=== PATIENT | female | born 1975 | race Caucasian/White ===

== ENCOUNTER → 2017-03-18 | Outpatient (CLI) | payer MEDICAID ==
[2017-03-18 09:15] LABS: ABSOLUTE BASOPHILS # (AUTO) 0.1 10^3/uL (0.0-0.2); ABSOLUTE EOSINOPHILS # (AUTO) 0.2 10^3/uL (0.0-0.6); ABSOLUTE LYMPHOCYTES (AUTO) 2.8 10^3/uL (0.5-4.7); ABSOLUTE MONOCYTES (AUTO) 0.6 10^3/uL (0.1-1.4); ABSOLUTE NEUT (AUTO) 5.2 10^3/uL (1.7-8.2); BASOPHILS % (AUTO) 1.1 % (0-2); EOSINOPHILS % (AUTO) 2.3 % (0-6); HEMATOCRIT 39.6 % (36.0-47.0); HEMOGLOBIN 13.1 g/dL (12.0-15.5); HGB HCT DIFFERENCE -0.3; LYMPHOCYTES % (AUTO) 31.7 % (13-45); MEAN CORPUSCULAR HEMOGLOBIN 27.9 pg (27.0-33.4); MEAN CORPUSCULAR VOLUME 85 fl (80-97); MONOCYTES % (AUTO) 6.8 % (3-13); RED BLOOD COUNT 4.69 10^6/uL (3.72-5.28); RED CELL DISTRIBUTION WIDTH 14.7 % (11.5-14.0); SEGMENTED NEUTROPHILS % (AUTO) 58.1 % (42-78); WHITE BLOOD COUNT 8.9 10^3/uL (4.0-10.5)
[2017-03-18 09:37] LABS: ALANINE AMINOTRANSFERASE 25 U/L (9-52); ALKALINE PHOSPHATASE 132 U/L (38-126); ANION GAP 8 (5-19); ASPARTATE AMINO TRANSFERASE 12 U/L (14-36); BILIRUBIN,DIRECT 0.4 mg/dL (0.0-0.4); BILIRUBIN,TOTAL 0.5 mg/dL (0.2-1.3); BLOOD UREA NITROGEN 8 mg/dL (7-20); CALCIUM 9.7 mg/dL (8.4-10.2); CARBON DIOXIDE 29 mmol/L (22-30); CHLORIDE 104 mmol/L (98-107); CHOLESTEROL 257.23 mg/dL (0-200); CREATININE RESULT 0.86 mg/dL (0.52-1.25); Direct HDL 35 mg/dL (>40); GLUCOSE 105 mg/dL (75-110); POTASSIUM 4.6 mmol/L (3.6-5.0); SODIUM 140.8 mmol/L (137-145); TOTAL PROTEIN 6.9 g/dL (6.3-8.2); TRIGLYCERIDES 184 mg/dL (<150)
[2017-03-18 09:40] LABS: URINE BARBITURATES SCREEN NEGATIVE; URINE METHADONE SCREEN NEGATIVE; URINE OPIATES LOW NEGATIVE; URINE PHENCYCLIDINE SCREEN NEGATIVE
[2017-03-18 09:48] LABS: DIRECT LDL 193 mg/dL (<100)
[2017-03-18 09:52] LABS: VLDL CHOLESTEROL 36.8 mg/dL (10-31)
[2017-03-19 09:05] LABS: THYROXINE (T4) 7.4 ug/dL (4.5-12.0)
== END ==
LOC: LAB 08:50
PROVIDERS: ATTEND Psychiatry & Neurology Psychiatry
DX: Z79.899 Other long term (current) drug therapy (principal)
CPT/HCPCS: 36415; 80053; 80061; 80307; 83036; 84436; 84443; 84480; 85025

== ENCOUNTER → 2017-10-23 | Outpatient (CLI) | payer MEDICAID ==
--- NOTE | 2017-10-23 10:42 | WOMENS IMAGING REPORT ---
EXAM DESCRIPTION: BILAT DIAGNOSTIC MAMMO W/CAD; U/S BREAST UNILATERAL, COMPL COMPLETED DATE/TIME: 10/23/2017 8:07 am; 10/23/2017 10:18 am REASON FOR STUDY: INCONCLUSSIVE MAMMOGRAM;R92.2; BILATERAL R92.2 INCONCLUSIVE MAMMOGRAM COMPARISON: None. TECHNIQUE: Additional images of both breasts with true lateral, magnification lateral, and magnifica tion CC images. LIMITATIONS: None. FINDINGS: RIGHT BREAST MASSES: No suspicious masses. CALCIFICATIONS: Multiple calcifications, almost all of which have configuration of [id number]. ARCHITECTURAL DISTORTION: None. DEVELOPING DENSITY: None. ASYMMETRY: None noted. OTHER: No other significant findings. LEFT BREAST MASSES: No suspicious masses. CALCIFICATIONS: Multiple calcifications, almost all of which have configuration of [id number]. ARCHITECTURAL DISTORTION: None. DEVELOPING DENSITY: None. ASYMMETRY: None noted. OTHER: No other significant findings. BREAST ULTRASOUND: TECHNIQUE: Static and dynamic grayscale images acquired of the entire right and left breast. Selected color Doppler images recorded. ELASTOGRAPHY PERFORMED: No. LIMITATIONS: None. FINDINGS: MASS: Multiple small anechoic cysts scattered throughout both breasts, measuring 1.5 cm or less. No solid mass identified. Normal glandular tissue. ELASTOGRAPHY CHARACTERISTICS: Not applicable. OTHER: No other significant finding. IMPRESSION: 1. Multiple small anechoic cysts in both breasts. No solid lesions identified. 2. Multiple calcifications in both breasts, more numerous in the right breast. Almost all of these h ave configuration of benign milk of calcium. Since there are no prior studies, recommend short-term interval followup to evaluate for stability or any significant change. BREAST DENSITY: c. The breasts are heterogeneously dense, which may obscure small masses. BIRAD: 3 Probably benign finding. Initial short-interval follow-up suggested. RECOMMENDATION: RECOMMENDED FOLLOW UP: Birads 3: The patient will return in 6 months for follow-up i maging to include magnification images of both breasts. SPECIFIC INTERVENTION/IMAGING/CONSULTATION RECOMMENDED:The patient will return for 6 month follow-up diagnostic mammography(tomosynthesis) to include magnification images of both breasts. COMMUNICATION:The imaging findings were not discussed with the patient. She will receive a letter for her accelerated follow-up. COMMENT: The patient has been notified of the results by letter per MQSA requirements. Additional no tification policies are in place for contacting patient with suspicious or incomplete findings. Quality ID #225: The [employer] recommends an annual screening mammogram for women aged 40 years or over. This facility utilizes a reminder system to ensure that all patients receive reminder letters, and/or direct phone calls for appointments. This includes reminders for routine scr eening mammograms, diagnostic mammograms, or other Breast Imaging Interventions when appropriate. Th is patient will be placed in the appropriate reminder system. The [employer] (ACR) has developed recommendations for screening MRI of the breast s in certain patient populations, to be used in conjunction with mammography. Breast MRI surveillanc e may be appropriate for women with more than 20% lifetime risk of developing breast cancer as deter mined by genetic testing, significant family history of the disease, or history of mantle radiation f or Hodgkins Disease. ACR Practice Guidelines 2008. TECHNICAL DOCUMENTATION: FINDING NUMBER: (1) ASSESSMENT: (1) JOB ID: [id number] [employer]- All Rights Reserved
== END ==
LOC: WI 07:40
PROVIDERS: ATTEND Family Medicine
DX: N60.02 Solitary cyst of left breast (principal); N60.01 Solitary cyst of right breast
CPT/HCPCS: 76641; G0204; 77066

== ENCOUNTER 2017-12-16 10:14 | Emergency (ER) | payer MEDICAID ==
--- NOTE | 2017-12-16 12:18 | RADIOLOGY REPORT (SQ) ---
EXAM DESCRIPTION: RIBS RIGHT W/PA CHEST COMPLETED DATE/TIME: 12/16/2017 12:01 pm REASON FOR STUDY: right lower rib pain COMPARISON: None. TECHNIQUE: Frontal view of the chest and additional views of the right ribs acquired. NUMBER OF VIEWS: Four view. LIMITATIONS: None. FINDINGS: FRONTAL CXR: No pneumothorax. No pleural effusion. No atelectasis or infiltrates. RIBS: No displaced rib fractures. No lytic or blastic bony lesions. OTHER: No other significant finding. IMPRESSION: NO PNEUMOTHORAX. NO DISPLACED RIB FRACTURES. COMMENT: SITE OF TRAUMA/COMPLAINT MARKED/STAMP COMPLETED: NO. TECHNICAL DOCUMENTATION: JOB ID: [id number] [employer]- All Rights Reserved
[2017-12-16] MEDS ORDERED: TRAMADOL HCL 50 MG TABLET PO ONE (13:46)
[2017-12-16] MEDS ORDERED: LIDOCAINE 5% (700 MG) TRANSDERMAL ADH..PATCH TP ONE (13:46)
--- NOTE | 2017-12-16 13:50 | ER Document Report ---
ED General - General Chief Complaint: Rib Pain Stated Complaint: PAIN Time Seen by Provider: 12/16/17 11:12 TRAVEL OUTSIDE OF THE [place] IN LAST 30 DAYS: No - HPI Patient complains to provider of: Right chest wall pain Notes: Patient states a family member was walking her back trying to crack it when foot slipped running down the right side of her ribs. Patient states has had increased pain since that time. States occurred last night. Patient was in the right side upon my evaluation no signs of any obvious distress. Denies any medical problems. Denies any fevers chills nausea or diarrhea. - Related Data Allergies/Adverse Reactions: No Known Allergies Allergy (Unverified 12/16/17 10:15) Past Medical History - Social History Smoking Status: Unknown if Ever Smoked Family History: Reviewed & Not Pertinent Review of Systems - Review of Systems Constitutional: No symptoms reported EENT: No symptoms reported Cardiovascular: Chest pain - Right sided Respiratory: No symptoms reported Gastrointestinal: No symptoms reported Genitourinary: No symptoms reported Female Genitourinary: No symptoms reported Musculoskeletal: No symptoms reported Skin: No symptoms reported Hematologic/Lymphatic: No symptoms reported Neurological/Psychological: No symptoms reported -: Yes All other systems reviewed and negative Physical Exam - Vital signs Vitals: Temp Pulse Resp BP Pulse Ox 98.4 F 103 H 18 119/65 96 12/16/17 10:28 12/16/17 10:28 12/16/17 10:28 12/16/17 10:28 12/16/17 10:28 Interpretation: Normal - General General appearance: Appears well, Alert - HEENT Head: Normocephalic, Atraumatic Eyes: Normal Pupils: PERRL - Respiratory Respiratory status: No respiratory distress Chest status: Tender - Tenderness to palpation of the right lower ribs Breath sounds: Normal Chest palpation: Normal - Cardiovascular Rhythm: Regular Heart sounds: Normal auscultation Murmur: No - Abdominal Inspection: Normal Distension: No distension Bowel sounds: Normal Tenderness: Nontender Organomegaly: No organomegaly - Back Back: Normal, Nontender - Extremities General upper extremity: Normal inspection, Nontender, Normal color, Normal ROM , Normal temperature General lower extremity: Normal inspection, Nontender, Normal color, Normal ROM , Normal temperature, Normal weight bearing. No: Hood's sign - Neurological Neuro grossly intact: Yes Cognition: Normal Orientation: AAOx4 Roach Coma Scale Eye Opening: Spontaneous Roach Coma Scale Verbal: Oriented Deep Coma Scale Motor: Obeys Commands Deep Coma Scale Total: 15 Speech: Normal Motor strength normal: LUE, RUE, LLE, RLE Sensory: Normal - Psychological Associated symptoms: Normal affect, Normal mood - Skin Skin Temperature: Warm Skin Moisture: Dry Skin Color: Normal Course - Re-evaluation Re-evalutation: 12/16/17 15:56 X-rays negative for any acute pathology. Patient will be discharged home encouraged patient use ice packs warm packs. More likely underlying rib contusion. Abdomen is soft nontender no signs of any significant pathology in the abdomen. - Vital Signs Vital signs: Temp Pulse Resp BP Pulse Ox 97.4 F 88 12 101/51 L 98 12/16/17 14:00 12/16/17 14:00 12/16/17 14:00 12/16/17 14:00 12/16/17 14:00 Discharge - Discharge Clinical Impression: Right-sided chest wall pain Condition: Good Disposition: HOME, SELF-CARE Instructions: Anti-Inflammatory Medication ([facility]), Chest Wall Pain ([facility]), Rib Contusion ([facility]) Additional Instructions: Your evaluation is consistent with a rib contusion. There is no signs of fracture on the x-ray. Please take pain medication as prescribed. Pain is well return to ER symptoms worsen. Prescriptions: Ibuprofen [Motrin 800 mg Tablet] 800 mg PO Q8H PRN #30 tab PRN Reason: Tramadol HCl [Ultram 50 mg Tablet] 50 mg PO ASDIR PRN #14 tablet PRN Reason: Forms: Return to Work Referrals: MAGALIE HACKETT DO [Primary Care Provider] - Follow up as needed
[2017-12-16 14:02] VITALS: BP 101/51
== END 2017-12-16 14:08 | disposition home or self-care (01) ==
LOC: ER 10:14
DX: R07.89 Other chest pain (principal); R07.81 Pleurodynia; W01.0XXA Fall on same level from slipping, tripping and stumbling without subsequent striking against object, initial encounter
CPT/HCPCS: 99283; 71101; J3490

== ENCOUNTER 2018-01-15 08:13 | Day surgery (SDC) | payer MEDICAID ==
[2018-01-15] MEDS ORDERED: ACETAMINOPHEN 325 MG TABLET ONE (09:19)
[2018-01-15] MEDS ORDERED: MIDAZOLAM 2 MG/2 ML INJ ONE (11:33)
[2018-01-15] MEDS ORDERED: PROPOFOL INJ 200 MG/20 ML VIAL IV ONE (11:33)
[2018-01-15] MEDS ORDERED: DIPHENHYDRAMINE HCL 50 MG/ML VIAL IV PRN (11:46)
[2018-01-15] MEDS ORDERED: MEPERIDINE HCL/PF INJ 25 MG/1 ML DISP.SYRIN IV PRN (11:46)
[2018-01-15] MEDS ORDERED: PROMETHAZINE HCL INJ 25 MG/1 ML VIAL IV PRN ×2 (11:46)
[2018-01-15] MEDS ORDERED: OXYCODONE-ACETAMINOPHEN 5-325 MG TABLET PO PRN ×2 (11:46)
[2018-01-15] MEDS ORDERED: FENTANYL CITRATE INJ/PF 100 MCG/2 ML AMPUL IV PRN ×3 (11:46)
--- NOTE | 2018-01-15 12:03 | Operative Report ---
Operative Report DATE OF SURGERY: 01/15/18 Operative Report: The risks benefits and alternatives of the procedure explained to the patient in detail and informed consent is obtained.A GIF Olympus video scope was inserted into the patient's mouth and hypopharynx, the esophagus is identified intubated and insufflated, the scope was then advanced through the esophagus stomach and duodenum, retroflexion maneuver is done, the esophagus stomach and first and second portions of the duodenum examined PREOPERATIVE DIAGNOSIS: Nausea, dyspepsia POSTOPERATIVE DIAGNOSIS: Duodenitis status post biopsy rule out Helicobacter pylori. Gastritis status post biopsy OPERATION: EGD with biopsy SURGEON: EMILIO SERVIN ANESTHESIA: LMAC TISSUE REMOVED OR ALTERED: As noted above COMPLICATIONS: None. ESTIMATED BLOOD LOSS: None. INTRAOPERATIVE FINDINGS: As noted above. PROCEDURE: Patient tolerated procedure well. No immediate postprocedure complications are noted. Patient discharged in good condition. Discharge date 01/15/2018. Discharge diet: Regular. Discharge activity: Regular. 2-3 week follow-up to discuss findings. Patient is instructed call the office or proceed to the emergency room should there be any further problems or questions. We will and pathology.
[2018-01-15 13:37] VITALS: BP 106/53
== END 2018-01-15 13:30 | disposition home or self-care (01) ==
LOC: OROUT 08:13
PROVIDERS: ATTEND Internal Medicine Gastroenterology
DX: K29.80 Duodenitis without bleeding (principal); K29.70 Gastritis, unspecified, without bleeding; F17.210 Nicotine dependence, cigarettes, uncomplicated; K21.9 Gastro-esophageal reflux disease without esophagitis; G47.33 Obstructive sleep apnea (adult) (pediatric); Z79.899 Other long term (current) drug therapy
CPT/HCPCS: 43239; 36415; 84703; J3490; J2250; J2704; 731

== ENCOUNTER → 2018-02-18 | Outpatient (CLI) | payer MEDICAID ==
--- NOTE | 2018-02-18 13:25 | RADIOLOGY REPORT (SQ) ---
EXAM DESCRIPTION: U/S ABDOMEN COMPLETE W/O DOP COMPLETED DATE/TIME: 02/18/2018 10:28 am REASON FOR STUDY: BILIOS VOMITING WITH NAUSEA R11.14 BILIOUS VOMITING COMPARISON: None. TECHNIQUE: Dynamic and static grayscale images acquired of the abdomen and recorded on PACS. Loyo wei selected color Doppler and spectral images recorded. LIMITATIONS: None. FINDINGS: PANCREAS: No masses. Visualized pancreatic duct normal caliber. LIVER: No masses. Echotexture normal. LIVER VASCULATURE: Normal directional flow of the main portal vein and hepatic veins. GALLBLADDER: No stones. Normal wall thickness. No pericholecystic fluid. ULTRASOUND-DETECTED ROB'S SIGN: Negative. INTRAHEPATIC DUCTS AND COMMON DUCT: CBD and intrahepatic ducts normal caliber. No filling defects. INFERIOR VENA CAVA: Normal flow. AORTA: No aneurysm. RIGHT KIDNEY: Normal size. Normal echogenicity. No solid or suspicious masses. No hydronephros is. No calcifications. LEFT KIDNEY: Normal size. Normal echogenicity. No solid or suspicious masses. No hydronephrosi s. No calcifications. SPLEEN: Normal size. No solid masses. PERITONEAL AND PLEURAL SPACES: No ascites or effusions. OTHER: No other significant finding. IMPRESSION: NORMAL ABDOMINAL ULTRASOUND. TECHNICAL DOCUMENTATION: JOB ID: [id number] [employer]- All Rights Reserved Reading location - IP/workstation name: [email or web address]
== END ==
LOC: RAD 09:15
PROVIDERS: ATTEND Internal Medicine Gastroenterology
DX: R11.14 Bilious vomiting (principal)
CPT/HCPCS: 76700

== ENCOUNTER → 2018-02-28 | Outpatient (CLI) | payer MEDICAID ==
--- NOTE | 2018-02-28 10:00 | RADIOLOGY REPORT (SQ) ---
EXAM DESCRIPTION: NM HIDA SCAN WITH CCK COMPLETED DATE/TIME: 02/28/2018 9:41 am REASON FOR STUDY: BILIOUS VOMITING (R11.14) R11.14 BILIOUS VOMITING COMPARISON: None. RADIONUCLIDE AND DOSE: DOSAGE RADIONUCLIDE: 4.9 millicuries Tc99m Mebrofenin. DOSAGE CCK: 1.3 micrograms. DOSAGE MORPHINE: Not required. The route of agent administration: Intravenous TECHNIQUE: Serial imaging right upper quadrant up to 60 minutes following injection of radionuclide. CCK injected after gallbladder visualized. LIMITATIONS: None. FINDINGS: LIVER: Normal visualization without areas of photopenia. INTRA AND EXTRAHEPATIC BILE DUCTS: Normal accumulation of activity. GALLBLADDER: Normal visualization. Calculated Ejection Fraction of 5%. Below the normal value of 35% or greater. PHYSICAL RESPONSE: Patients presenting complaint was not reproduced. OTHER: No other significant finding. IMPRESSION: Diminished gallbladder ejection fraction suggests dyskinesia. Of note, CCK did not repl icate the patient's presenting symptoms. TECHNICAL DOCUMENTATION: JOB ID: [id number] [employer]- All Rights Reserved Reading location - IP/workstation name: [email or web address]
== END ==
LOC: RAD 06:46
PROVIDERS: ATTEND Internal Medicine Gastroenterology
DX: R11.14 Bilious vomiting (principal)
CPT/HCPCS: 78227; J2805; A9537; Q9969

== ENCOUNTER → 2018-04-11 | Outpatient (CLI) | payer MEDICAID ==
[2018-04-11 12:54] LABS: ABSOLUTE BASOPHILS # (AUTO) 0.1 10^3/uL (0.0-0.2); ABSOLUTE EOSINOPHILS # (AUTO) 0.2 10^3/uL (0.0-0.6); ABSOLUTE LYMPHOCYTES (AUTO) 2.8 10^3/uL (0.5-4.7); ABSOLUTE MONOCYTES (AUTO) 0.6 10^3/uL (0.1-1.4); ABSOLUTE NEUT (AUTO) 8.1 10^3/uL (1.7-8.2); BASOPHILS % (AUTO) 0.9 % (0-2); EOSINOPHILS % (AUTO) 1.7 % (0-6); HEMATOCRIT 36.3 % (36.0-47.0); HEMOGLOBIN 12.5 g/dL (12.0-15.5); LYMPHOCYTES % (AUTO) 23.6 % (13-45); MEAN CORPUSCULAR HEMOGLOBIN 29.3 pg (27.0-33.4); MEAN CORPUSCULAR HGB CONC 34.5 g/dL (32.0-36.0); MEAN CORPUSCULAR VOLUME 85 fl (80-97); MONOCYTES % (AUTO) 5.2 % (3-13); PLATELET COUNT 364 10^3/uL (150-450); RED BLOOD COUNT 4.28 10^6/uL (3.72-5.28); RED CELL DISTRIBUTION WIDTH 15.4 % (11.5-14.0); SEGMENTED NEUTROPHILS % (AUTO) 68.6 % (42-78); TOTAL CELLS COUNTED % (AUTO) 100 %; WHITE BLOOD COUNT 11.8 10^3/uL (4.0-10.5)
[2018-04-11 13:13] LABS: ANION GAP 12 (5-19); BLOOD UREA NITROGEN 19 mg/dL (7-20); CALCIUM 10.2 mg/dL (8.4-10.2); CARBON DIOXIDE 27 mmol/L (22-30); CHLORIDE 104 mmol/L (98-107); GLUCOSE 96 mg/dL (75-110); POTASSIUM 4.4 mmol/L (3.6-5.0); SODIUM 142.8 mmol/L (137-145)
--- NOTE | 2018-04-11 13:43 | EKG REPORT ---
SEVERITY:- OTHERWISE NORMAL ECG - SINUS RHYTHM BORDERLINE LEFT AXIS DEVIATION : Confirmed by: Mauro Zhou MD 11-Apr-2018 13:43:09
== END ==
LOC: OD 11:32
PROVIDERS: ATTEND Surgery
DX: G47.30 Sleep apnea, unspecified (principal); Z72.0 Tobacco use
CPT/HCPCS: 36415; 80048; 85025; 93005; 93010

== ENCOUNTER → 2018-04-14 | Outpatient (CLI) | payer MEDICAID ==
[2018-04-14 14:43] LABS: ABSOLUTE BASOPHILS # (AUTO) 0.1 10^3/uL (0.0-0.2); ABSOLUTE EOSINOPHILS # (AUTO) 0.2 10^3/uL (0.0-0.6); ABSOLUTE LYMPHOCYTES (AUTO) 3.4 10^3/uL (0.5-4.7); ABSOLUTE MONOCYTES (AUTO) 0.8 10^3/uL (0.1-1.4); ABSOLUTE NEUT (AUTO) 8.5 10^3/uL (1.7-8.2); BASOPHILS % (AUTO) 0.6 % (0-2); EOSINOPHILS % (AUTO) 1.9 % (0-6); HEMOGLOBIN 12.9 g/dL (12.0-15.5); LYMPHOCYTES % (AUTO) 26.5 % (13-45); MEAN CORPUSCULAR HEMOGLOBIN 28.9 pg (27.0-33.4); MEAN CORPUSCULAR VOLUME 85 fl (80-97); MONOCYTES % (AUTO) 5.8 % (3-13); PLATELET COUNT 398 10^3/uL (150-450); RED BLOOD COUNT 4.47 10^6/uL (3.72-5.28); RED CELL DISTRIBUTION WIDTH 15.2 % (11.5-14.0); SEGMENTED NEUTROPHILS % (AUTO) 65.2 % (42-78); TOTAL CELLS COUNTED % (AUTO) 100 %
--- NOTE | 2018-04-14 15:50 | RADIOLOGY REPORT (SQ) ---
EXAM DESCRIPTION: CHEST SINGLE VIEW COMPLETED DATE/TIME: 04/14/2018 2:18 pm REASON FOR STUDY: TOBACCO USE; SLEEP APNEA COMPARISON: None. EXAM PARAMETERS: NUMBER OF VIEWS: One view. TECHNIQUE: Single frontal radiographic view of the chest acquired. RADIATION DOSE: NA LIMITATIONS: None. FINDINGS: LUNGS AND PLEURA: No opacities, masses or pneumothorax. No pleural effusion. MEDIASTINUM AND HILAR STRUCTURES: No masses. Contour normal. HEART AND VASCULAR STRUCTURES: Heart normal in size. Normal vasculature. BONES: No acute findings. HARDWARE: None in the chest. OTHER: No other significant finding. IMPRESSION: NO ACUTE RADIOGRAPHIC FINDING IN THE CHEST. TECHNICAL DOCUMENTATION: JOB ID: [id number] [employer]- All Rights Reserved Reading location - IP/workstation name: [email or web address]
== END ==
LOC: OD 13:50
PROVIDERS: ATTEND Surgery
DX: G47.30 Sleep apnea, unspecified (principal); Z72.0 Tobacco use
CPT/HCPCS: 36415; 71045; 85025

== ENCOUNTER → 2018-05-01 | Outpatient (CLI) | payer MEDICAID ==
--- NOTE | 2018-05-01 10:34 | WOMENS IMAGING REPORT ---
EXAM DESCRIPTION: BILAT DIAGNOSTIC MAMMO W/CAD COMPLETED DATE/TIME: 05/01/2018 10:17 am REASON FOR STUDY: DIAGNOSTIC BILATERAL MAMMO/R92.0 R92.0 MAMMOGRAPHIC MICROCALCIFICATION FOUND ON D X IMAGING OF COMPARISON: 08/30/2017, 10/23/2017 TECHNIQUE: Standard craniocaudal, 90 mediolateral and mediolateral oblique views of each breast rec orded using digital acquisition. Bilateral cone compression magnification views in the CC and MLO orientations. LIMITATIONS: None. FINDINGS: RIGHT BREAST MASSES: No suspicious masses. CALCIFICATIONS: Multiple milk of calcium calcifications are present ARCHITECTURAL DISTORTION: None. DEVELOPING DENSITY: None. ASYMMETRY: None noted. OTHER: No other significant findings. LEFT BREAST MASSES: No suspicious masses. CALCIFICATIONS: Multiple milk of calcium calcifications are present ARCHITECTURAL DISTORTION: None. DEVELOPING DENSITY: None. ASYMMETRY: None noted. OTHER: No other significant finding. Read with the assistance of CAD: .[facility] - R2 Cenova Version 1.3 .[facility] - R2 Cenova Version 1.3 .[facility] - R2 Cenova Version 2.4 .[facility] [place] - R2 Cenova Version 2.4 .[facility] - R2 Tape Recorder Repairer Version 9.2 IMPRESSION: No mammographic evidence for malignancy. BREAST DENSITY: d. The breasts are extremely dense, which lowers the sensitivity of mammography. BIRAD: 2 Benign findings. RECOMMENDATION: RECOMMENDED FOLLOW UP: Please continue yearly bilateral screening tomosynthesis in J adriana 2019 SPECIFIC INTERVENTION/IMAGING/CONSULTATION RECOMMENDED:No additional intervention/ imaging/consultati on needed at this time. COMMUNICATION:The negative/benign results were communicated to the patient. COMMENT: The patient has been notified of the results by letter per [place] requirements. Additional no tification policies are in place for contacting patient with suspicious or incomplete findings. Quality ID #225: The [employer] recommends an annual screening mammogram for women aged 40 years or over. This facility utilizes a reminder system to ensure that all patients receive reminder letters, and/or direct phone calls for appointments. This includes reminders for routine scr eening mammograms, diagnostic mammograms, or other Breast Imaging Interventions when appropriate. Th is patient will be placed in the appropriate reminder system. The [employer] (ACR) has developed recommendations for screening MRI of the breast s in certain patient populations, to be used in conjunction with mammography. Breast MRI surveillanc e may be appropriate for women with more than 20% lifetime risk of developing breast cancer as deter mined by genetic testing, significant family history of the disease, or history of mantle radiation f or Hodgkins Disease. ACR Practice Guidelines 2008. TECHNICAL DOCUMENTATION: FINDING NUMBER: (1) ASSESSMENT: (1) JOB ID: [id number] [employer]- All Rights Reserved Reading location - IP/workstation name: [email or web address]
== END ==
LOC: WI 09:46
PROVIDERS: ATTEND Family Medicine
DX: R92.0 Mammographic microcalcification found on diagnostic imaging of breast (principal)
CPT/HCPCS: 77066

== ENCOUNTER 2018-05-02 11:08 | Inpatient (IN) | payer MEDICAID ==
[2018-05-02] MEDS ORDERED: NORMAL SALINE 1000 ML 1,000 ML IV ONE (11:28)
--- NOTE | 2018-05-02 11:30 | ER Document Report ---
ED Medical Screen (RME) - General Chief Complaint: Syncope Stated Complaint: WEAKNESS Time Seen by Provider: 05/02/18 11:22 Notes: RAPID MEDICAL EVALUATION DISCLOSURE I have seen this patient as part of a Rapid Medical Evaluation and, if applicable, placed any initially appropriate orders. The patient will be seen and fully evaluated, including a full history and physical exam, by a provider ( in Main ED or Fast Track) when a room becomes available. 42-year-old female PMH left hip replacement here with complaint of syncope that occurred yesterday. She went from a sitting to a standing position then immediately passed out. She fell onto her left side and complains of pain to the left chest wall and left hip. She feels like she has been drinking plenty of fluids. She denies any other symptoms. EXAM CTAB Mild left lateral chest wall TTP Mild left hip TTP TRAVEL OUTSIDE OF THE [place] IN LAST 30 DAYS: No - Related Data Allergies/Adverse Reactions: No Known Allergies Allergy (Verified 05/02/18 11:09) Past Medical History - Social History Chew tobacco use (# tins/day): No Frequency of alcohol use: None Drug Abuse: None - Past Medical History Cardiac Medical History: Denies: Hx Coronary Artery Disease, Hx Heart Attack, Hx Hypertension Pulmonary Medical History: Denies: Hx Asthma, Hx Bronchitis, Hx COPD, Hx Pneumonia Neurological Medical History: Denies: Hx Cerebrovascular Accident, Hx Seizures Renal/ Medical History: Denies: Hx Peritoneal Dialysis Musculoskeltal Medical History: Denies Hx Arthritis - Immunizations Hx Diphtheria, Pertussis, Tetanus Vaccination: Yes History of Influenza Vaccine for 07/2017 - 12/2017 Season: Yes Influenza Administration Date for 07/2017 - 12/2017 Season: 08/15/17 Physical Exam - Vital signs Vitals: Temp Pulse Resp BP Pulse Ox 97.5 F 92 16 95/63 L 100 05/02/18 11:21 05/02/18 11:21 05/02/18 11:21 05/02/18 11:21 05/02/18 11:21 Course - Vital Signs Vital signs: Temp Pulse Resp BP Pulse Ox 97.5 F 92 16 95/63 L 100 05/02/18 11:21 05/02/18 11:21 05/02/18 11:21 05/02/18 11:21 05/02/18 11:21 Doctor's Discharge - Discharge Referrals: MAGALIE HACKETT DO [Primary Care Provider] - Follow up as needed
[2018-05-02 12:20] LABS: ABSOLUTE BASOPHILS # (AUTO) 0.1 10^3/uL (0.0-0.2); ABSOLUTE EOSINOPHILS # (AUTO) 0.3 10^3/uL (0.0-0.6); ABSOLUTE LYMPHOCYTES (AUTO) 3.4 10^3/uL (0.5-4.7); ABSOLUTE MONOCYTES (AUTO) 0.8 10^3/uL (0.1-1.4); ABSOLUTE NEUT (AUTO) 8.3 10^3/uL (1.7-8.2); BASOPHILS % (AUTO) 0.4 % (0-2); EOSINOPHILS % (AUTO) 2.3 % (0-6); HEMATOCRIT 39.5 % (36.0-47.0); HEMOGLOBIN 13.9 g/dL (12.0-15.5); LYMPHOCYTES % (AUTO) 26.3 % (13-45); MEAN CORPUSCULAR HEMOGLOBIN 29.2 pg (27.0-33.4); MEAN CORPUSCULAR HGB CONC 35.1 g/dL (32.0-36.0); MEAN CORPUSCULAR VOLUME 83 fl (80-97); MONOCYTES % (AUTO) 5.9 % (3-13); PLATELET COUNT 487 10^3/uL (150-450); RED BLOOD COUNT 4.74 10^6/uL (3.72-5.28); RED CELL DISTRIBUTION WIDTH 14.6 % (11.5-14.0); SEGMENTED NEUTROPHILS % (AUTO) 65.1 % (42-78); TOTAL CELLS COUNTED % (AUTO) 100 %; WHITE BLOOD COUNT 12.7 10^3/uL (4.0-10.5)
[2018-05-02 12:38] LABS: ALANINE AMINOTRANSFERASE 23 U/L (9-52); ALBUMIN 4.8 g/dL (3.5-5.0); ALKALINE PHOSPHATASE 138 U/L (38-126); ANION GAP 17 (5-19); ASPARTATE AMINO TRANSFERASE 22 U/L (14-36); BILIRUBIN,DIRECT 0.4 mg/dL (0.0-0.4); BILIRUBIN,TOTAL 0.6 mg/dL (0.2-1.3); BLOOD UREA NITROGEN 27 mg/dL (7-20); CALCIUM 10.2 mg/dL (8.4-10.2); CARBON DIOXIDE 33 mmol/L (22-30); CHLORIDE 91 mmol/L (98-107); GLUCOSE 103 mg/dL (75-110); PHOSPHORUS 5.3 mg/dL (2.5-4.5); SODIUM 140.6 mmol/L (137-145); TOTAL PROTEIN 8.1 g/dL (6.3-8.2)
[2018-05-02 12:43] LABS: POTASSIUM 2.8 mmol/L (3.6-5.0)
[2018-05-02] MEDS ORDERED: POTASSIUM CHLORIDE 10 MEQ CAPSULE.ER PO ONE ×2 (12:45→17:00)
[2018-05-02] MEDS ORDERED: NORMAL SALINE 1000 ML 1,000 ML IV PRN ×2 (13:04→15:44)
[2018-05-02] MEDS ORDERED: ONDANSETRON 4 MG TAB.RAPDIS PO ONE (13:04)
--- NOTE | 2018-05-02 13:07 | ER Document Report ---
ED General - General Chief Complaint: Syncope Stated Complaint: WEAKNESS Time Seen by Provider: 05/02/18 11:22 Mode of Arrival: Ambulatory Information source: Patient Notes: 42-year-old female with history of depression, anxiety, obstructive sleep apnea presents from home complaint of left hip pain. Patient states that she had a syncopal episode last night. She states that she walked into the bathroom had a change of vision and then fell to the floor. Mother who is at the bedside states that when she found the patient she was awake and crying. Patient reports that she had a cholecystectomy approximately 3 weeks ago. She states since that time she has not been eating and drinking normally. She does not drink water but only Sprite. She states that every time she does attempt to eat she vomits. She also complains of difficulty with urination. Patient states because of this difficulty to urinate she decided to take her mother's Lasix twice a day for the last 3 weeks. TRAVEL OUTSIDE OF THE [place] IN LAST 30 DAYS: No - HPI Onset: Yesterday Onset/Duration: Sudden Quality of pain: Achy, Throbbing Severity: Moderate Pain Level: 2 Associated symptoms: Body/muscle aches, Nausea, Vomiting. denies: Chest pain, Shortness of breath, Weakness Exacerbated by: Movement Relieved by: Remaining still Similar symptoms previously: No Recently seen / treated by doctor: Yes - Related Data Allergies/Adverse Reactions: No Known Allergies Allergy (Verified 05/02/18 11:09) Past Medical History - General Information source: Patient, [facility] Records - Social History Smoking Status: Current Every Day Smoker Cigarette use (# per day): Yes - 5-10 Chew tobacco use (# tins/day): No Smoking Education Provided: Yes - Patient counselled regarding cessation for 4 minutes Frequency of alcohol use: None Drug Abuse: None Lives with: Parents Family History: Reviewed & Not Pertinent Patient has suicidal ideation: No Patient has homicidal ideation: No - Past Medical History Cardiac Medical History: Denies: Hx Coronary Artery Disease, Hx Heart Attack, Hx Hypertension Pulmonary Medical History: Denies: Hx Asthma, Hx Bronchitis, Hx COPD, Hx Pneumonia Neurological Medical History: Denies: Hx Cerebrovascular Accident, Hx Seizures Renal/ Medical History: Denies: Hx Peritoneal Dialysis Musculoskeltal Medical History: Denies Hx Arthritis - Immunizations Hx Diphtheria, Pertussis, Tetanus Vaccination: Yes Review of Systems - Review of Systems Constitutional: denies: Chills, Fever, Recent illness EENT: denies: Difficulty swallowing Cardiovascular: Syncope. denies: Chest pain, Palpitations, Dizziness, Lightheaded Respiratory: denies: Short of breath Gastrointestinal: Nausea, Vomiting. denies: Abdominal pain Genitourinary: Retention Female Genitourinary: No symptoms reported Musculoskeletal: Back pain, Joint pain Skin: denies: Rash Hematologic/Lymphatic: No symptoms reported Neurological/Psychological: Depression, Anxiety, Lost consciousness. denies: Headaches, Speech impairment, Numbness, Suicidal ideation Physical Exam - Vital signs Vitals: Temp Pulse Resp BP Pulse Ox 97.5 F 92 16 95/63 L 100 05/02/18 11:21 05/02/18 11:21 05/02/18 11:21 05/02/18 11:21 05/02/18 11:21 - Notes Notes: PHYSICAL EXAMINATION: GENERAL: Well-appearing, well-nourished and in no acute distress. HEAD: Atraumatic, normocephalic. EYES: Pupils equal round and reactive to light, extraocular movements intact, conjunctiva are normal. ENT: Nares patent, oropharynx clear without exudates. dry mucous membranes. NECK: Normal range of motion, supple without lymphadenopathy LUNGS: Breath sounds clear to auscultation bilaterally and equal. No wheezes rales or rhonchi. HEART: Regular rate and rhythm without murmurs ABDOMEN: Soft, nontender, nondistended abdomen. No guarding, no rebound. No masses appreciated. Female : deferred Musculoskeletal: Left hip tender to palpation. No obvious deformity. DP pulse intact. NEUROLOGICAL: Cranial nerves grossly intact. Normal speech, normal gait. Normal sensory, motor exams PSYCH: Normal mood, normal affect. SKIN: Warm, Dry, normal turgor, no rashes or lesions noted. Course - Re-evaluation Re-evalutation: Hip X-Ray 05/02/18 11:27 IMPRESSION: No acute fracture or malalignment. There is lucency along the distal tip of the left hip prosthesis, which could indicate loosening Ribs w/Chest X-Ray 05/02/18 11:27 IMPRESSION: NO PNEUMOTHORAX. NO DISPLACED RIB FRACTURES. Hip X-Ray 05/02/18 11:27 IMPRESSION: No acute fracture or malalignment. There is lucency along the distal tip of the left hip prosthesis, which could indicate loosening Ribs w/Chest X-Ray 05/02/18 11:27 IMPRESSION: NO PNEUMOTHORAX. NO DISPLACED RIB FRACTURES. 05/02/18 15:38 42-year-old female with history of depression, anxiety, obstructive sleep apnea presents from home complaint of left hip pain. Patient states that she had a syncopal episode last night. She states that she walked into the bathroom had a change of vision and then fell to the floor. Mother who is at the bedside states that when she found the patient she was awake and crying. Patient reports that she had a cholecystectomy approximately 3 weeks ago. She states since that time she has not been eating and drinking normally. She does not drink water but only Sprite. She states that every time she does attempt to eat she vomits. She also complains of difficulty with urination. Patient states because of this difficulty to urinate she decided to take her mother's Lasix twice a day for the last 3 weeks. Upon arrival vitals reviewed patient is mildly hypotensive but not tachycardic or febrile. She does appear markedly dehydrated. Orthostatic vital signs were obtained and negative. Patient found to have a potassium of 2.8 and an ELIESER. Patient was provided IV fluids, potassium was replenished. Patient will be admitted to the hospitalist. 05/02/18 15:38 - Vital Signs Vital signs: Temp Pulse Resp BP Pulse Ox 97.5 F 92 14 106/65 100 05/02/18 11:21 05/02/18 11:21 05/02/18 15:00 05/02/18 15:00 05/02/18 15:00 - Laboratory Result Diagrams: 05/02/18 11:50 05/02/18 11:50 Laboratory results interpreted by me: 05/02/18 05/02/18 05/02/18 11:50 11:50 14:28 WBC 12.7 H RDW 14.6 H Plt Count 487 H Absolute Neutrophils 8.3 H Potassium 2.8 L* Chloride 91 L Carbon Dioxide 33 H BUN 27 H Creatinine 2.69 H Est GFR ( Amer) 24 L Est GFR (Non-Af Amer) 20 L Phosphorus 5.3 H Magnesium 2.5 H Alkaline Phosphatase 138 H Urine Blood SMALL H - Diagnostic Test Radiology reviewed: Image reviewed, Reports reviewed Discharge - Discharge Clinical Impression: Hypokalemia, Acute kidney injury, Dehydration Syncope Qualifiers: Syncope type: unspecified Qualified Code(s): R55 - Syncope and collapse Condition: Good Disposition: ADMITTED INPATIENT Admitting Provider: Hospitalist Unit Admitted: Medical Floor
[2018-05-02] MEDS ORDERED: RINGERS SOLUTION,LACTATED 1,000 ML IV ONE ×2 (13:09→13:14)
--- NOTE | 2018-05-02 13:25 | RADIOLOGY REPORT (SQ) ---
EXAM DESCRIPTION: HIP LEFT AP/LATERAL COMPLETED DATE/TIME: 05/02/2018 12:16 pm REASON FOR STUDY: s/p fall COMPARISON: None. NUMBER OF VIEWS: Two views. TECHNIQUE: AP pelvis and additional frog-leg view of the left hip. LIMITATIONS: None. FINDINGS: MINERALIZATION: Normal. LEFT HIP: Left hip replacement with acetabular component anchored with a single screw. Non cemented femoral component. There is lucency around the distal tip of the femoral prosthesis, question loosen ing. RIGHT HIP: No acute fracture or malalignment. No significant right hip joint space narrowing. PUBIS AND ISCHIUM: No fracture. PELVIS: No fracture. SACRUM: No fracture or dislocation. No worrisome bone lesions. LOWER LUMBAR SPINE: No fracture or dislocation. No worrisome bone lesions. No significant disc disea se. SOFT TISSUES: IUD in the uterus OTHER: No other significant finding. IMPRESSION: No acute fracture or malalignment. There is lucency along the distal tip of the left hip prosthesis, which could indicate loosening TECHNICAL DOCUMENTATION: JOB ID: [id number] [email or web address]- All Rights Reserved Reading location - IP/workstation name: [facility]
--- NOTE | 2018-05-02 13:27 | RADIOLOGY REPORT (SQ) ---
EXAM DESCRIPTION: RIBS LEFT W/PA CHEST COMPLETED DATE/TIME: 05/02/2018 12:16 pm REASON FOR STUDY: s/p fall COMPARISON: Chest and right rib detail films 12/16/2017 TECHNIQUE: Frontal view of the chest and additional views of the left ribs acquired. NUMBER OF VIEWS: PA chest, left rib detail two views LIMITATIONS: None. FINDINGS: FRONTAL CXR: No pneumothorax. No pleural effusion. No atelectasis or infiltrates. Cardi ac silhouette size, fanta unremarkable. RIBS: No displaced rib fractures. No lytic or blastic bony lesions. OTHER: Clips right upper quadrant post cholecystectomy. IMPRESSION: NO PNEUMOTHORAX. NO DISPLACED RIB FRACTURES. COMMENT: SITE OF TRAUMA/COMPLAINT MARKED/STAMP COMPLETED: Yes TECHNICAL DOCUMENTATION: JOB ID: [id number] [email or web address]- All Rights Reserved Reading location - IP/workstation name: [facility]
--- NOTE | 2018-05-02 13:28 | EKG REPORT ---
SEVERITY:- ABNORMAL ECG - SINUS RHYTHM BORDERLINE LEFT AXIS DEVIATION NONSPECIFIC T ABNORMALITIES, DIFFUSE LEADS : Confirmed by: Mauro Zhou MD 02-May-2018 13:27:45
[2018-05-02] MEDS: POTASSI CL 20 MEQ/50 ML RIDER 20 MEQ/50 ML RTUPB IV SCH ×2 (14:09→17:18)
[2018-05-02 15:02] LABS: APPEARANCE,URINE CLEAR; BILIRUBIN,URINE NEGATIVE (NEGATIVE); COLOR,URINE YELLOW; GLUCOSE, URINE NEGATIVE (NEGATIVE); KETONES,URINE NEGATIVE (NEGATIVE); LEUKOCYTE ESTERASE,URINE NEGATIVE (NEGATIVE); NITRITE,URINE NEGATIVE (NEGATIVE); PROTEIN,URINE NEGATIVE (NEGATIVE); UROBILINOGEN,URINE NEGATIVE mg/dL (<2.0)
[2018-05-02] MEDS ORDERED: ONDANSETRON HCL INJ/PF 4 MG/2 ML SDV IV PRN (15:44)
[2018-05-02] MEDS ORDERED: OXYCODONE-ACETAMINOPHEN 5-325 MG TABLET PO PRN (15:44)
[2018-05-02] MEDS ORDERED: ACETAMINOPHEN 325 MG TABLET PO PRN (15:44)
--- NOTE | 2018-05-02 16:17 | PDOC H&P ---
History of Present Illness Admission Date/PCP: 05/02/18 14:57 MAGALIE HACKETT DO Patient complains of: Fall yesterday History of Present Illness: LES MITTAL is a 42 year old female with past medical history of bipolar disorder and other psych disorders that she is unsure of, presented to the ED complaining of a fall that happened yesterday. Patient states that yesterday she was standing when she felt like she blacked out and hit the wall and then landed on the floor. States that she hit her left hip and her left side of her head. Her mother was in the next room and came in to see her and found her on the floor setting. She cannot remember whether she passed out or not. She is not sure if he actually blacked out or not. Patient states that her mother helped him to the fact that she was still weak. Mother states that she apparently that she went to sleep at night. This morning her mother was worried about her due to the falling episode and hence brought her to the ED. Patient states that currently her left hip hurts but otherwise she feels fine. Patient states that she has been drinking water at all. She states "I hate water". States that she does not drink water at all. She does take a lot of psych medicine and she has not missed any overdoses. Patient denies any chest pain, shortness of breath, abdominal pain, nausea/vomiting, dizziness, lightness , blurry vision or numbness/tingling. Past Medical History Cardiac Medical History: Denies: Coronary Artery Disease, Myocardial Infarction, Hypertension Pulmonary Medical History: Denies: Asthma, Bronchitis, Chronic Obstructive Pulmonary Disease (COPD), Pneumonia Neurological Medical History: Denies: Seizures Musculoskeltal Medical History: Denies: Arthritis Hematology: Denies: Anemia Past Surgical History Past Surgical History: Reports: Cholecystectomy - Last month. As per patient Social History Lives with: Parents Smoking Status: Current Every Day Smoker Family History Family History: Reviewed & Not Pertinent Parental Family History Reviewed: Yes Children Family History Reviewed: Unknown Sibling(s) Family History Reviewed.: Unknown Medication/Allergy Home Medications: Aripiprazole 30 mg PO DAILY 01/09/18 Benztropine Mesylate 2 mg PO BID 01/09/18 Hydrocodone Bit/Acetaminophen [Hydrocodon-Acetaminophen 5-325] 1 tab PO Q4HP PRN 01/09/18 Hydroxyzine HCl 25 mg PO TID 01/09/18 Prazosin HCl 2 mg PO DAILY 01/09/18 Quetiapine Fumarate [Seroquel] 1 tab PO QHS 01/09/18 Topiramate [Topamax] 1 tab PO DAILY 01/09/18 Bupropion HCl [Wellbutrin Xl 300mg 24hr Tablet] 1 tab PO DAILY 05/02/18 Gabapentin [Neurontin 300 mg Capsule] 300 mg PO Q8 05/02/18 Ibuprofen [Motrin 800 mg Tablet] 800 mg PO BID 05/02/18 Rizatriptan Benzoate [Rizatriptan] 10 mg PO ASDIR PRN 05/02/18 Vortioxetine Hydrobromide [Brintellix] 20 mg PO DAILY 05/02/18 Allergies/Adverse Reactions: No Known Allergies Allergy (Verified 05/02/18 11:09) Review of Systems Constitutional: PRESENT: as per HPI. ABSENT: chills, fever(s), headache(s) Eyes: ABSENT: visual disturbances Nose, Mouth, and Throat: ABSENT: headache(s), mouth pain, sore throat Cardiovascular: ABSENT: chest pain, dyspnea on exertion Respiratory: ABSENT: cough, dyspnea Gastrointestinal: ABSENT: abdominal pain, bloating, coffee ground emesis, diarrhea, heartburn Musculoskeletal: PRESENT: as per HPI, other - Left hip pain Integumentary: ABSENT: diaphoresis Neurological: ABSENT: abnormal gait, abnormal movements, confusion, dizziness, focal weakness, frequent falls, lack of coordination, numbness, tingling, weakness Psychiatric: PRESENT: as per HPI, other - Bipolar disorder and other psych disorders Hematologic/Lymphatic: ABSENT: easy bruising Physical Exam Vital Signs: Temp Pulse Resp BP Pulse Ox 97.5 F 92 14 106/65 100 05/02/18 11:21 05/02/18 11:21 05/02/18 15:00 05/02/18 15:00 05/02/18 15:00 General appearance: PRESENT: no acute distress, well-developed, well-nourished Head exam: PRESENT: atraumatic, normocephalic Eye exam: PRESENT: conjunctival injection, EOMI. ABSENT: scleral icterus Mouth exam: PRESENT: dry mucosa, neck supple, tongue midline Throat exam: ABSENT: tonsillar exudate Neck exam: PRESENT: full ROM. ABSENT: JVD, tenderness Respiratory exam: PRESENT: clear to auscultation ana, symmetrical. ABSENT: accessory muscle use Cardiovascular exam: PRESENT: RRR, +S1, +S2 Pulses: PRESENT: +2 pedal pulses bilateral GI/Abdominal exam: PRESENT: normal bowel sounds, soft. ABSENT: tenderness Rectal exam: PRESENT: deferred Extremities exam: ABSENT: calf tenderness, joint swelling, pedal edema Musculoskeletal exam: PRESENT: tenderness - left hip lateral aspect-no skin changes noted Neurological exam: PRESENT: alert, altered, awake, oriented to person, oriented to place, oriented to time, CN II-XII grossly intact - No Skin exam: PRESENT: dry, warm Results Impressions: Hip X-Ray 05/02/18 11:27 IMPRESSION: No acute fracture or malalignment. There is lucency along the distal tip of the left hip prosthesis, which could indicate loosening Ribs w/Chest X-Ray 05/02/18 11:27 IMPRESSION: NO PNEUMOTHORAX. NO DISPLACED RIB FRACTURES. Assessment & Plan - Diagnosis (1) Dehydration Is this a current diagnosis for this admission?: Yes Plan: Likely secondary to decreased oral intake. We will start her on IV fluids for hydration. Discussed with patient about adequate p.o. intake. (2) Acute kidney injury Is this a current diagnosis for this admission?: Yes Plan: Secondary to above. Hold nephrotoxic agents. Repeat BMP in the morning. Started on IV fluids. (3) Hypokalemia Is this a current diagnosis for this admission?: Yes Plan: Replete as needed. (4) Syncope Qualifiers: Syncope type: vasovagal syncope Qualified Code(s): R55 - Syncope and collapse Is this a current diagnosis for this admission?: Yes Plan: Likely secondary to dehydration. We will still get a head CT with no IV contrast. - Time Time Spent: 50 to 70 Minutes Anticipated discharge: Home Within: within 48 hours Disposition: Admits to medical floor - Inpatient Certification Medical Necessity: Need For IV Fluids
[2018-05-02] MEDS ORDERED: (PENDING PHARMACY ID) (Vortioxetine Hydrobromide [Trintellix] 20 MG) PO SCH (17:00)
[2018-05-02] MEDS ORDERED: (PENDING PHARMACY ID) (Hydroxyzine Hcl [Hydroxyzine Hcl] 25 MG) PO SCH (18:00)
[2018-05-02] MEDS ORDERED: BENZTROPINE MESYLATE 2 MG PO SCH (18:00)
[2018-05-02] MEDS ORDERED: QUETIAPINE FUMARATE PO SCH (22:00)
[2018-05-02] MEDS ORDERED: QUETIAPINE FUMARATE 100 MG TABLET PO SCH (22:00)
[2018-05-02] MEDS: BUPROPION HCL 100 MG TABLET PO SCH (22:11)
[2018-05-02] MEDS: GABAPENTIN 300 MG CAPSULE PO SCH (22:11)
[2018-05-02] MEDS: BENZTROPINE MESYLATE 1 MG TABLET PO SCH (22:11)
[2018-05-02] MEDS: HYDROXYZINE PAMOATE 25 MG CAPSULE PO SCH (22:12)
[2018-05-02] MEDS: FAMOTIDINE INJ/PF 20 MG/2 ML SDV IV SCH (22:12)
[2018-05-02] MEDS: HEPARIN SOD (PORCINE) 5,000 UNIT/ML 1 ML SYRINGE SUBCUT SCH (22:12)
[2018-05-02] MEDS ORDERED: ONDANSETRON HCL INJ/PF 4 MG/2 ML SDV ONE (22:56)
[2018-05-03 05:39] LABS: HEMATOCRIT 28.8 % (36.0-47.0); MEAN CORPUSCULAR HEMOGLOBIN 30.1 pg (27.0-33.4); MEAN CORPUSCULAR HGB CONC 35.9 g/dL (32.0-36.0); MEAN CORPUSCULAR VOLUME 84 fl (80-97); PLATELET COUNT 305 10^3/uL (150-450); RED BLOOD COUNT 3.44 10^6/uL (3.72-5.28); RED CELL DISTRIBUTION WIDTH 14.8 % (11.5-14.0); WHITE BLOOD COUNT 6.9 10^3/uL (4.0-10.5)
[2018-05-03 05:54] LABS: HEMOGLOBIN 10.4 g/dL (12.0-15.5)
[2018-05-03 05:55] LABS: ANION GAP 8 (5-19); BLOOD UREA NITROGEN 16 mg/dL (7-20); CALCIUM 8.7 mg/dL (8.4-10.2); CARBON DIOXIDE 30 mmol/L (22-30); CHLORIDE 106 mmol/L (98-107); GLUCOSE 91 mg/dL (75-110); SODIUM 144.4 mmol/L (137-145)
[2018-05-03 06:06] LABS: POTASSIUM 2.9 mmol/L (3.6-5.0)
[2018-05-03] MEDS ORDERED: POTASSIUM CHLORIDE 20 MEQ/50 ML RTU IV SCH (06:30)
[2018-05-03] MEDS: HYDROXYZINE PAMOATE 25 MG CAPSULE PO SCH ×3 (06:55→22:25)
[2018-05-03] MEDS: BUPROPION HCL 100 MG TABLET PO SCH ×2 (06:55→14:02)
[2018-05-03] MEDS: GABAPENTIN 300 MG CAPSULE PO SCH ×3 (06:55→22:25)
[2018-05-03] MEDS: HEPARIN SOD (PORCINE) 5,000 UNIT/ML 1 ML SYRINGE SUBCUT SCH ×3 (06:55→22:04)
[2018-05-03] MEDS ORDERED: POTASSIUM CHLORIDE 10 MEQ CAPSULE.ER PO ONE (07:00)
[2018-05-03] MEDS ORDERED: NORMAL SALINE 1000 ML 1,000 ML IV PRN (07:48)
[2018-05-03] MEDS: POTASSIUM CHLORIDE 20 MEQ/50 ML RTU IV SCH ×2 (08:30→10:28)
[2018-05-03] MEDS: BENZTROPINE MESYLATE 1 MG TABLET PO SCH (09:09)
[2018-05-03] MEDS ORDERED: (PENDING PHARMACY ID) (Vortioxetine Hydrobromide [Trintellix] 20 MG) PO SCH (10:00)
[2018-05-03] MEDS ORDERED: TOPIRAMATE 100 MG TABLET PO SCH (10:00)
[2018-05-03] MEDS ORDERED: DOXAZOSIN MESYLATE 1 MG TABLET PO SCH (10:00)
[2018-05-03] MEDS ORDERED: ARIPIPRAZOLE 5 MG TABLET PO SCH (10:00)
[2018-05-03] MEDS ORDERED: ARIPIPRAZOLE 30 MG PO SCH (10:00)
[2018-05-03] MEDS ORDERED: (PENDING PHARMACY ID) (Prazosin Hcl [Prazosin Hcl] 2 MG) PO SCH (10:00)
--- NOTE | 2018-05-03 11:24 | PDOC PROGRESS REPORT ---
Subjective Progress Note for:: 05/03/18 - seen on rounds this am Subjective:: patient wants to go home- states she doesn't like being here. has no other acute complaints Reason For Visit: ELIESER Physical Exam Vital Signs: Temp Pulse Resp BP Pulse Ox 98.2 F 73 12 89/50 L 100 05/03/18 07:14 05/03/18 07:14 05/03/18 07:14 05/03/18 07:14 05/03/18 07:14 Intake & Output 05/02/18 05/03/18 05/04/18 06:59 06:59 06:59 Intake Total 1735 Output Total 1600 Balance 135 Weight 159 lb 2.78 oz General appearance: PRESENT: no acute distress, well-developed, well-nourished Eye exam: PRESENT: EOMI. ABSENT: conjunctival injection, scleral icterus Mouth exam: PRESENT: moist, neck supple Neck exam: PRESENT: full ROM. ABSENT: JVD, tenderness Respiratory exam: PRESENT: clear to auscultation ana, symmetrical Cardiovascular exam: PRESENT: RRR, +S1, +S2 Pulses: PRESENT: +2 pedal pulses bilateral GI/Abdominal exam: PRESENT: normal bowel sounds, soft. ABSENT: tenderness Extremities exam: ABSENT: joint swelling, +2 edema Musculoskeletal exam: PRESENT: full ROM. ABSENT: tenderness Neurological exam: PRESENT: alert, altered, awake, oriented to person, oriented to place, oriented to time, CN II-XII grossly intact Skin exam: PRESENT: dry, warm Results Laboratory Results: 05/03/18 04:59 05/03/18 04:59 05/03/18 05/03/18 04:59 04:59 WBC 6.9 RBC 3.44 L Hgb 10.4 L D Hct 28.8 L MCV 84 MCH 30.1 MCHC 35.9 RDW 14.8 H Plt Count 305 Sodium 144.4 Potassium 2.9 L* Chloride 106 Carbon Dioxide 30 Anion Gap 8 BUN 16 Creatinine 1.26 H Est GFR ( Amer) 57 L Est GFR (Non-Af Amer) 47 L Glucose 91 Calcium 8.7 Magnesium 2.1 Impressions: Hip X-Ray 05/02/18 11:27 IMPRESSION: No acute fracture or malalignment. There is lucency along the distal tip of the left hip prosthesis, which could indicate loosening Ribs w/Chest X-Ray 05/02/18 11:27 IMPRESSION: NO PNEUMOTHORAX. NO DISPLACED RIB FRACTURES. Assessment & Plan - Diagnosis (1) Dehydration Is this a current diagnosis for this admission?: Yes (2) Acute kidney injury Is this a current diagnosis for this admission?: Yes (3) Hypokalemia Is this a current diagnosis for this admission?: Yes (4) Syncope Qualifiers: Syncope type: vasovagal syncope Qualified Code(s): R55 - Syncope and collapse Is this a current diagnosis for this admission?: Yes - Time Time Spent with patient: 25-34 minutes - Plan Summary Plan Summary: Cr is improving today. I have slowed down her IV fluid rate today. i have discussed again about adequate PO intake. she tells me she will. Her K is low again today- not sure why- ?medication induced. I think i will put her on a daily Kdur for now and have her follow up with her Psychiatrist for medication re-evaluation. I have also consulted Psych here for help with this pleasant patient.
--- NOTE | 2018-05-03 14:18 | PSYCHOLOGICAL NOTE ---
Psych Note - Psych Note Psych Note: Reason for Consult: Medication recommendations Patient's mother is at bedside per patient's request LES MITTAL is a 42 year old female with past medical history of bipolar disorder and other psych disorders that she is unsure of, presented to the ED complaining of a fall that happened yesterday. Patient disclosed she is "ready to go home." She disclosed she has an outpatient mental health provider through [facility] and has an appointment on the and of this month. She receives both therapeutic intervention and medication management. She denies ever having inpatient psychiatric treatment. Patient denies current suicidal ideations stating that she "used to but not now." Patient denies homicidal ideation. When asked about hallucinations she denies having hallucinations but confirms she used to have them "a long time ago." Patient was unable to give a listing of her mental health diagnoses identifying only "that one the soldier's get, SI, and paranormal". Patient's mother was at bedside per patient's request she did not know the patient's mental health diagnosis. Patient is alert and orientated to person, place, time and circumstance. Mood is euthymic with congruent affect as evidenced by openly engaging smiling with clinician. Patient denies current suicidal and homicidal ideation. Delusions are absent behaviors congruent with an intact reality based presentation i.e. organized and linear thought process. Eye contact is well-maintained. Conversational speech has noticeable speech impediment. Intellectual abilities appear to be below average range. Attention and concentration were good. Insight, judgment, impulse control are fair. Medication recommendations per [facility]'s contracted psychiatrist Dr. Autumn SPENCE are as follows 1. Please discontinue Abilify, Trintellix, and Seroquel 2. Please decrease Wellbutrin to 150 mg daily for 5 days then decrease to 75 mg daily for 5 days then discontinue 3. Please continue taking Topamax, Vistaril and gabapentin as directed by your outpatient mental health provider 4. Please decrease Cogentin to 1 mg daily 5. Please add Zyprexa 5 mg twice daily Diagnosis 296.80 (F31.9) unspecified bipolar and related disorder per history R/O 319 (F79) unspecified intellectual disability Impression\\plan: Patient is considered cleared from acute psychiatric services. Medication recommendations were requested and have been provided. Patient has an outpatient mental health provider through [facility] and has upcoming appointments for both therapy and medication management this month on 05/07/2018 and 2017. Patient is recommended to continue with her outpatient mental health provider for her mental health services. Dr. Llanes was consulted and the care management this patient.
[2018-05-03] MEDS ORDERED: BENZTROPINE MESYLATE 1 MG TABLET PO SCH (22:00)
[2018-05-03] MEDS ORDERED: OLANZAPINE 5 MG TABLET PO SCH (22:00)
[2018-05-03] MEDS: FAMOTIDINE INJ/PF 20 MG/2 ML SDV IV SCH (22:04)
[2018-05-03] MEDS ORDERED: NA PHOS,M-B/NA PHOS,DI-BA (ADULT) 133 ML ENEMA PR PRN (22:17)
[2018-05-03] MEDS ORDERED: LACTULOSE SYRUP 20 GM/30 ML UDCUP PO ONE (22:30)
[2018-05-04] MEDS: GABAPENTIN 300 MG CAPSULE PO SCH (06:33)
[2018-05-04] MEDS: HYDROXYZINE PAMOATE 25 MG CAPSULE PO SCH (06:33)
[2018-05-04] MEDS: HEPARIN SOD (PORCINE) 5,000 UNIT/ML 1 ML SYRINGE SUBCUT SCH (06:33)
[2018-05-04 08:35] LABS: ANION GAP 8 (5-19); BLOOD UREA NITROGEN 8 mg/dL (7-20); CALCIUM 8.9 mg/dL (8.4-10.2); CARBON DIOXIDE 27 mmol/L (22-30); CHLORIDE 111 mmol/L (98-107); GLUCOSE 87 mg/dL (75-110); POTASSIUM 3.5 mmol/L (3.6-5.0); SODIUM 146.4 mmol/L (137-145)
[2018-05-04 08:47] VITALS: BP 101/56
--- NOTE | 2018-05-04 09:21 | PDOC DISCHARGE SUMMARY ---
General - Admit/Disc Date/PCP Admission Date/Primary Care Provider: 05/02/18 14:57 MAGALIE ROXANN, Discharge Date: 05/04/18 - Discharge Diagnosis (1) Dehydration Is this a current diagnosis for this admission?: Yes (2) Acute kidney injury Is this a current diagnosis for this admission?: Yes (3) Hypokalemia Is this a current diagnosis for this admission?: Yes (4) Syncope Is this a current diagnosis for this admission?: Yes - Additional Information Discharge Diet: As Tolerated Discharge Activity: Activity As Tolerated Prescriptions: Bupropion HCl [Wellbutrin 75 mg Tablet] 150 mg PO DAILY #60 tablet Olanzapine [Zyprexa 5 mg Tablet] 5 mg PO Q12 30 Days #60 tablet Home Medications: Aripiprazole 30 mg PO DAILY 01/09/18 Benztropine Mesylate 2 mg PO BID 01/09/18 Hydrocodone Bit/Acetaminophen [Hydrocodon-Acetaminophen 5-325] 1 tab PO Q4HP PRN 01/09/18 Hydroxyzine HCl 25 mg PO TID 01/09/18 Prazosin HCl 2 mg PO DAILY 01/09/18 Quetiapine Fumarate [Seroquel] 1 tab PO QHS 01/09/18 Topiramate [Topamax] 1 tab PO DAILY 01/09/18 Bupropion HCl [Wellbutrin Xl 300mg 24hr Tablet] 1 tab PO DAILY 05/02/18 Gabapentin [Neurontin 300 mg Capsule] 300 mg PO Q8 05/02/18 Ibuprofen [Motrin 800 mg Tablet] 800 mg PO BID 05/02/18 Vortioxetine Hydrobromide [Brintellix] 20 mg PO DAILY 05/02/18 Acetaminophen [Tylenol 325 mg Tablet] 650 mg PO Q6HP PRN tablet 05/04/18 Benztropine Mesylate [Cogentin 1 mg Tablet] 1 mg PO QHS #0 tablet 05/04/18 Bupropion HCl [Wellbutrin 75 mg Tablet] 150 mg PO DAILY #60 tablet 05/04/18 Olanzapine [Zyprexa 5 mg Tablet] 5 mg PO Q12 30 Days #60 tablet 05/04/18 History of Present Illness Patient complains of: fall History of Present Illness: please see H&P for full assessment and plan Hospital Course Hospital Course: After admission to the hospital she was started on IV fluids and her home meds were continued. she did have a fall at home the night before but i believe it was due to dehydration- likely presyncope- she's not a good historian and she' s not completely sure if she truely had a syncope or not. ER did not feel the need for head CT head and given her history physical exam I also think this is all vasovagal. she looked dehydrated and had an ELIESER. after IV fluids her Cr did normalize. she had issues with voiding and had to have straight cath twice - there was concern for all her psych meds-i consulted our psych here and they adjusted all her medications- i appreciate their assistance. I have spoken with her and mother about these changes- they verbalized understanding. They have to f/u with her psychiatrist after discharge. advised to hydrate plenty and call 911 if she has any more presyncopal episodes. Her potassium has also been running low and was repleted twice. She may need to have BMP repeat in a few days- once again this may be due to medications she' s on. Physical Exam Vital Signs: Temp Pulse Resp BP Pulse Ox 98.2 F 66 16 101/56 L 100 05/04/18 08:00 05/04/18 08:00 05/04/18 08:00 05/04/18 08:00 05/04/18 08:00 Intake & Output 05/03/18 05/04/18 05/05/18 06:59 06:59 06:59 Intake Total 1735 3080 Output Total 1600 1975 Balance 135 1105 Weight 159 lb 2.78 oz 169 lb 5.04 oz General appearance: PRESENT: no acute distress, obese Head exam: PRESENT: atraumatic, normocephalic Eye exam: PRESENT: EOMI. ABSENT: conjunctival injection, scleral icterus Ear exam: PRESENT: normal external ear exam Mouth exam: PRESENT: moist, neck supple Teeth exam: PRESENT: poor dentation Neck exam: PRESENT: full ROM. ABSENT: JVD, tenderness Respiratory exam: PRESENT: clear to auscultation ana, symmetrical Cardiovascular exam: PRESENT: RRR, +S1, +S2 Pulses: PRESENT: +2 pedal pulses bilateral Vascular exam: PRESENT: normal capillary refill GI/Abdominal exam: PRESENT: normal bowel sounds, soft. ABSENT: tenderness Extremities exam: ABSENT: +2 edema Musculoskeletal exam: PRESENT: ambulatory, full ROM Neurological exam: PRESENT: alert, awake, oriented to person, oriented to place , oriented to time, CN II-XII grossly intact Skin exam: PRESENT: dry, warm Results Laboratory Results: 05/03/18 04:59 05/04/18 08:00 05/04/18 08:00 Sodium 146.4 H Potassium 3.5 L Chloride 111 H Carbon Dioxide 27 Anion Gap 8 BUN 8 Creatinine 0.88 Est GFR ( Amer) > 60 Est GFR (Non-Af Amer) > 60 Glucose 87 Calcium 8.9 Impressions: Hip X-Ray 05/02/18 11:27 IMPRESSION: No acute fracture or malalignment. There is lucency along the distal tip of the left hip prosthesis, which could indicate loosening Ribs w/Chest X-Ray 05/02/18 11:27 IMPRESSION: NO PNEUMOTHORAX. NO DISPLACED RIB FRACTURES. Qualifiers - * PATIENT BEING DISCHARGED WITH ANY OF THE FOLLOWING DIAGNOSIS: No Plan Discharge Plan: These are the recommendations by Psych- please follow them 1. Please discontinue Abilify, Trintellix, and Seroquel 2. Please decrease Wellbutrin to 150 mg daily for 5 days then decrease to 75 mg daily for 5 days then discontinue 3. Please continue taking Topamax, Vistaril and gabapentin as directed by your outpatient mental health provider 4. Please decrease Cogentin to 1 mg daily 5. Please add Zyprexa 5 mg twice daily Time Spent: Less than 30 Minutes
[2018-05-04] MEDS ORDERED: BUPROPION HCL 75 MG TABLET PO SCH (10:00)
== END 2018-05-04 10:53 | disposition home or self-care (01) | DRG 684 ==
LOC: ER 11:08 → EH 14:57 → 4N 15:31
PROVIDERS: ADMIT Internal Medicine; ATTEND Internal Medicine
DX: N17.9 Acute kidney failure, unspecified (principal); E87.6 Hypokalemia; E86.0 Dehydration; F31.9 Bipolar disorder, unspecified; W01.0XXA Fall on same level from slipping, tripping and stumbling without subsequent striking against object, initial encounter; F17.210 Nicotine dependence, cigarettes, uncomplicated; F32.9 Major depressive disorder, single episode, unspecified; G47.33 Obstructive sleep apnea (adult) (pediatric); F41.9 Anxiety disorder, unspecified; Z96.642 Presence of left artificial hip joint; Z79.899 Other long term (current) drug therapy; Z90.49 Acquired absence of other specified parts of digestive tract
CPT/HCPCS: 36415; 51701; 80048; 80053; 81001; 81025; 83735; 84100; 84484; 85025; 85027; 93005; 93010; 96361; 96365; 99285; 99406; J1644; J2405; J3480; J3490; J7030; J7120; S0028; S0119

== ENCOUNTER 2018-05-05 08:35 | Day surgery (SDC) | payer MEDICAID ==
[~2018-05-05 08:35] MED LIST: PROPOFOL INJ 200 MG/20 ML VIAL IV ONE
[2018-05-05] MEDS ORDERED: DIPHENHYDRAMINE HCL 50 MG/ML VIAL ONE (08:49)
[2018-05-05 11:11] VITALS: BP 105/62
[2018-05-05] MEDS ORDERED: PROPOFOL INJ 200 MG/20 ML VIAL IV ONE (12:00)
--- NOTE | 2018-05-05 13:03 | Operative Report ---
Operative Report DATE OF SURGERY: 05/05/18 Operative Report: The risks, benefits and alternatives of the procedure including risks of bleeding, perforation requiring surgery are explained to the patient in detail and informed consent is obtained. The patient has taken back to the endoscopy suite and placed in the left, lateral decubital position. Timeout was called. Propofol medication is administered. A rectal examination is done which did not reveal any masses, tears or fissures. An Olympus videoscope was inserted into the patient's rectum. The scope was then carefully advanced all the way to the cecum. The cecum was identified by the usual anatomical landmarks including the ileocecal valve as well as the appendiceal office. Photodocumentation is obtained. Scope was then sequentially pulled back via the various segments of the colon including the ascending colon, hepatic flexure , transverse colon, splenic flexure, descending colon and finally into the rectosigmoid portions of the colon. Retroflexion maneuvers performed. PREOPERATIVE DIAGNOSIS: Colorectal cancer screening. Family history of colon cancer POSTOPERATIVE DIAGNOSIS: Mild right-sided colon inflammation status post biopsy rule out lymphocytic, microscopic, collagenous colitis. Internal hemorrhoids OPERATION: Colonoscopy with biopsy SURGEON: EMILIO SERVIN ANESTHESIA: LMAC TISSUE REMOVED OR ALTERED: As noted above. COMPLICATIONS: None. ESTIMATED BLOOD LOSS: None. INTRAOPERATIVE FINDINGS: As noted above. PROCEDURE: Patient tolerated procedure well. No immediate postprocedure complications are noted. Patient discharged in good condition. Discharge date 05/05/2018. Discharge diet: Regular. Discharge activity: Regular. 2-3 week follow-up to discuss findings. Patient is instructed to call the office or proceed to the emergency room should there be any further problems or questions. We will wait on the pathology. 5 year surveillance colonoscopy.
[2018-05-06] MEDS ORDERED: LACTATED RINGERS 1000 ML IV PRN (05:00)
[2018-05-06] MEDS ORDERED: LIDOCAINE 0.5% INJ-PF (5 MG/ML) 50 ML SDV SUBCUT PRN (05:00)
== END 2018-05-05 11:00 | disposition home or self-care (01) ==
LOC: END 08:35
PROVIDERS: ATTEND Internal Medicine Gastroenterology
DX: K52.9 Noninfective gastroenteritis and colitis, unspecified (principal); K64.8 Other hemorrhoids; Z80.0 Family history of malignant neoplasm of digestive organs; F17.210 Nicotine dependence, cigarettes, uncomplicated; K21.9 Gastro-esophageal reflux disease without esophagitis; Z96.649 Presence of unspecified artificial hip joint; F31.9 Bipolar disorder, unspecified; Z79.899 Other long term (current) drug therapy
CPT/HCPCS: 45380; 88305 ×2; J1200; J2704; 811

== ENCOUNTER 2018-05-20 05:36 | Day surgery (SDC) | payer MEDICAID ==
[2018-05-14 10:23] LABS: HEMATOCRIT 32.9 % (36.0-47.0); HEMOGLOBIN 11.3 g/dL (12.0-15.5); MEAN CORPUSCULAR HGB CONC 34.4 g/dL (32.0-36.0); MEAN CORPUSCULAR VOLUME 87 fl (80-97); PLATELET COUNT 315 10^3/uL (150-450); RED BLOOD COUNT 3.77 10^6/uL (3.72-5.28); RED CELL DISTRIBUTION WIDTH 15.3 % (11.5-14.0); WHITE BLOOD COUNT 9.7 10^3/uL (4.0-10.5)
[2018-05-14 10:29] LABS: APPEARANCE,URINE SLIGHTLY-CLOUDY; BILIRUBIN,URINE NEGATIVE (NEGATIVE); COLOR,URINE YELLOW; GLUCOSE, URINE NEGATIVE (NEGATIVE); KETONES,URINE NEGATIVE (NEGATIVE); LEUKOCYTE ESTERASE,URINE TRACE (NEGATIVE); NITRITE,URINE NEGATIVE (NEGATIVE); PROTEIN,URINE NEGATIVE (NEGATIVE); UROBILINOGEN,URINE NEGATIVE mg/dL (<2.0)
[2018-05-14 10:49] LABS: ALANINE AMINOTRANSFERASE 17 U/L (9-52); ALBUMIN 3.4 g/dL (3.5-5.0); ALKALINE PHOSPHATASE 87 U/L (38-126); ANION GAP 11 (5-19); ASPARTATE AMINO TRANSFERASE 10 U/L (14-36); BILIRUBIN,DIRECT 0.3 mg/dL (0.0-0.4); BILIRUBIN,TOTAL 0.3 mg/dL (0.2-1.3); BLOOD UREA NITROGEN 10 mg/dL (7-20); CALCIUM 9.2 mg/dL (8.4-10.2); CARBON DIOXIDE 22 mmol/L (22-30); CHLORIDE 111 mmol/L (98-107); GLUCOSE 86 mg/dL (75-110); POTASSIUM 4.2 mmol/L (3.6-5.0); SODIUM 144.2 mmol/L (137-145)
--- NOTE | 2018-05-14 10:51 | RADIOLOGY REPORT (SQ) ---
EXAM DESCRIPTION: CHEST PA/LATERAL COMPLETED DATE/TIME: 05/14/2018 10:43 am REASON FOR STUDY: PRE-OP COMPARISON: AP chest 04/14/2018 PA chest and right rib detail 12/16/2017 EXAM PARAMETERS: NUMBER OF VIEWS: two views TECHNIQUE: Digital Frontal and Lateral radiographic views of the chest acquired. RADIATION DOSE: NA LIMITATIONS: none FINDINGS: LUNGS AND PLEURA: No opacities, masses or pneumothorax. No pleural effusion. MEDIASTINUM AND HILAR STRUCTURES: No masses or contour abnormalities. HEART AND VASCULAR STRUCTURES: Heart normal size. No evidence for failure. BONES: No acute findings. HARDWARE: Clips right upper quadrant post cholecystectomy OTHER: No other significant finding. IMPRESSION: NO SIGNIFICANT RADIOGRAPHIC FINDING IN THE CHEST. TECHNICAL DOCUMENTATION: JOB ID: [id number] [employer]- All Rights Reserved Reading location - IP/workstation name: [email or web address]
--- NOTE | 2018-05-14 21:46 | EKG REPORT ---
SEVERITY:- BORDERLINE ECG - SINUS RHYTHM BORDERLINE LEFT AXIS DEVIATION : Confirmed by: Alex Kurtz 14-May-2018 21:46:10
[~2018-05-20 05:36] MED LIST changes: +CEFAZOLIN 1 GM/D5W RTU 1 GM/50 ML RTUPB IV PRN; +LACTATED RINGERS 1000 ML IV PRN; -PROPOFOL INJ 200 MG/20 ML VIAL IV ONE
[2018-05-20] MEDS ORDERED: BUPIVACAINE HCL 0.25 % INJ/PF (2.5 MG/1 ML) 30 ML VIAL ONE (06:16)
[2018-05-20] MEDS ORDERED: ALBUTEROL SULFATE 0.083% NEB 2.5 MG/3 ML AMPUL NEB ONE (06:49)
[2018-05-20] MEDS ORDERED: ACETAMINOPHEN 1,000 MG/100 ML RTUPB IV ONE (08:13)
[2018-05-20] MEDS ORDERED: HYDROMORPHONE HCL INJ/PF 2 MG/ML AMPULE ONE ×2 (08:13→10:55)
[2018-05-20] MEDS ORDERED: MIDAZOLAM 2 MG/2 ML INJ ONE (08:13)
[2018-05-20] MEDS ORDERED: EPHEDRINE SULFATE INJ 50 MG/1 ML AMPULE ONE (08:13)
[2018-05-20] MEDS ORDERED: PROPOFOL INJ 200 MG/20 ML VIAL IV ONE (08:13)
[2018-05-20] MEDS ORDERED: FENTANYL CITRATE INJ/PF 100 MCG/2 ML AMPUL ONE (08:13)
[2018-05-20] MEDS ORDERED: MEPERIDINE HCL/PF INJ 25 MG/1 ML DISP.SYRIN IV PRN (08:55)
[2018-05-20] MEDS ORDERED: DIPHENHYDRAMINE HCL 50 MG/ML VIAL IV PRN (08:55)
[2018-05-20] MEDS ORDERED: PROMETHAZINE HCL INJ 25 MG/1 ML VIAL IV PRN ×2 (08:55)
[2018-05-20] MEDS ORDERED: FENTANYL CITRATE INJ/PF 100 MCG/2 ML AMPUL IV PRN ×3 (08:55)
[2018-05-20] MEDS ORDERED: ONDANSETRON HCL INJ/PF 4 MG/2 ML SDV IV PRN (08:55)
[2018-05-20] MEDS ORDERED: KETOROLAC TROMETHAMINE 60 MG/2 ML SDV ONE (10:20)
[2018-05-20] MEDS ORDERED: NEOSTIGMINE METHYLSULFATE 10 MG/10 ML VIAL ONE (10:20)
[2018-05-20] MEDS ORDERED: SUCCINYLCHOLINE CHLORIDE INJ 200 MG/10 ML VIAL ONE (10:20)
[2018-05-20] MEDS ORDERED: GLYCOPYRROLATE 1 MG/5 ML SYRINGE ONE (10:20)
[2018-05-20] MEDS ORDERED: ROCURONIUM BROMIDE INJ 50 MG/5 ML VIAL IV ONE (10:20)
[2018-05-20] MEDS ORDERED: DEXAMETHASONE SOD PHOSPHATE INJ 4 MG/1 ML VIAL ONE (10:20)
[2018-05-20] MEDS ORDERED: ONDANSETRON HCL INJ/PF 4 MG/2 ML SDV ONE (10:20)
--- NOTE | 2018-05-20 10:35 | OPERATIVE REPORT E ---
Operative Report NAME: LES MITTAL : 1975 AGE: 42Y DATE OF SURGERY: 05/20/2018 ROOM: PREOPERATIVE DIAGNOSIS: Hypermenorrhea. POSTOPERATIVE DIAGNOSIS: Hypermenorrhea. PROCEDURE: LAVH and bilateral salpingectomy. SURGEON: Darinel TYLER M.D. ESTIMATED BLOOD LOSS: Less than 100 mL. TISSUE REMOVED: Uterus and tubes. ANESTHESIA: General. DESCRIPTION OF PROCEDURE: The patient was placed in a dorsal lithotomy position, prepped and draped in a sterile fashion. A speculum was placed. The cervix was visualized and grasped with a single-tooth tenaculum. Hulka tenaculum was placed. Single-tooth tenaculum was removed. Attention was turned to the abdomen, where a supraumbilical midline incision was made. The trocar was introduced with insufflation of the abdomen and introduction of the laparoscope. Tubes, uterus, and ovaries appeared to be normal. The second puncture was made lateral to the first on the left and a 5 trocar was introduced and a third suprapubically and a 5 was introduced. Using the Harmonic scalpel, the left tube was removed by dividing along the mesosalpinx until the utero-ovarian ligament incision was begun on the right. Each pedicle then was divided with the Harmonic down to the level of the uterine artery. The bladder flap was created with sharp dissection. The laparoscope was removed and abdomen deflated. The attention was turned to the pelvis, where the speculum was placed, Hulka tenaculum was removed. The cervix was grasped with a Nicole thyroid clamp. Posterior cul-de-sac was entered with sharp dissection. The left uterosacral was clamped, divided and sutured with 2-0 Vicryl *------* on the right. The cervix was sharply circumscribed. The anterior peritoneum was entered with sharp dissection. Serial clamps were used on each side of the uterus, each pedicle being divided and sutured with 2-0 Vicryl. This continued to the level where the above incisions were encountered. The uterus and tubes were removed. The cuff was then closed with [id number] sutures of 2-0 Vicryl. There was some bleeding from the left side of the vagina where the speculum created a small rent. This was repaired using interrupted 2-0 Vicryl. Hemostasis was noted. Attention was turned to the abdomen. It was reinflated and the laparoscope was replaced for visualization of the pelvis. The pelvis was irrigated with normal saline. Hemostasis was noted. The pelvis was reinspected and hemostasis was noted. The laparoscope was removed and the abdomen deflated, trocar sleeves removed. The incision at the umbilicus was closed with 0 Vicryl for the fascia and 4-0 Vicryl subcutaneous. The 2 puncture wounds were closed with subcutaneous 4-0 Vicryl. The patient tolerated it well and was taken to recovery in a good condition. Urine remained clear throughout the procedure. DICTATING PHYSICIAN: Darinel TYLER M.D. [id number] PHY#: [id number] ID: [id number] JOB#: [id number] ACCT: [id number] cc:Darinel TYLER M.D. >
[2018-05-20] MEDS ORDERED: ONDANSETRON HCL 8 MG TABLET PO PRN (10:57)
[2018-05-20] MEDS ORDERED: OXYCODONE-ACETAMINOPHEN 5-325 MG TABLET PO PRN (10:57)
[2018-05-20] MEDS ORDERED: HYDROMORPHONE HCL INJ/PF 2 MG/ML AMPULE IV ONE (12:00)
[2018-05-20] MEDS ORDERED: IBUPROFEN 800 MG TABLET PO SCH (14:00)
[2018-05-20 18:08] VITALS: BP 106/57
[2018-05-20] MEDS ORDERED: BENZTROPINE MESYLATE 1 MG TABLET PO SCH (22:00)
[2018-05-20] MEDS ORDERED: TOPIRAMATE 100 MG TABLET PO SCH (22:00)
[2018-05-20] MEDS ORDERED: (PENDING PHARMACY ID) (Prazosin Hcl [Prazosin Hcl] 2 MG) PO SCH (22:00)
[2018-05-20] MEDS ORDERED: BENZTROPINE MESYLATE 1 MG PO SCH (22:00)
[2018-05-21] MEDS ORDERED: QUETIAPINE FUMARATE 200 MG PO SCH (10:00)
[2018-05-21] MEDS ORDERED: (PENDING PHARMACY ID) (Vortioxetine Hydrobromide [Trintellix] 10 MG) PO SCH (10:00)
[2018-05-21] MEDS ORDERED: ARIPIPRAZOLE 30 MG PO SCH (10:00)
[2018-05-21] MEDS ORDERED: HYDROXYZINE PAMOATE 25 MG CAPSULE PO SCH (10:00)
[2018-05-21] MEDS ORDERED: ARIPIPRAZOLE 5 MG TABLET PO SCH (10:00)
[2018-05-21] MEDS ORDERED: QUETIAPINE FUMARATE 100 MG TABLET PO SCH (10:00)
== END 2018-05-20 17:50 | disposition home or self-care (01) ==
LOC: OROUT 05:36 → 2S 11:45 → OROUT 17:50
PROVIDERS: ATTEND Obstetrics & Gynecology Gynecology
DX: N93.9 Abnormal uterine and vaginal bleeding, unspecified (principal); N92.0 Excessive and frequent menstruation with regular cycle; N88.8 Other specified noninflammatory disorders of cervix uteri; N83.8 Other noninflammatory disorders of ovary, fallopian tube and broad ligament; Z01.818 Encounter for other preprocedural examination; K21.9 Gastro-esophageal reflux disease without esophagitis; F17.210 Nicotine dependence, cigarettes, uncomplicated; G47.30 Sleep apnea, unspecified; Z96.642 Presence of left artificial hip joint; Z79.899 Other long term (current) drug therapy
CPT/HCPCS: 93005; 86900; 86901; 36415; 86850; 85027; 81025; 80053; 81001; 88307 ×2; 71046; 93010; 94640; 94762; 58552; J2250; J0690; J3490 ×2; J1100; J1885; J3010; J1170; J0330; J2405; S0020; J2704; J0131; 840

== ENCOUNTER 2018-09-12 09:43 | Emergency (ER) | payer MEDICAID ==
[2018-09-12] MEDS ORDERED: DIPHENHYDRAMINE HCL 50 MG/ML VIAL IV ONE (10:14)
[2018-09-12] MEDS ORDERED: KETOROLAC TROMETHAMINE INJ/PF 30 MG/1 ML SDV IV ONE (10:14)
[2018-09-12] MEDS ORDERED: NORMAL SALINE 1000 ML 1,000 ML IV ONE (10:14)
[2018-09-12] MEDS ORDERED: METOCLOPRAMIDE HCL INJ/PF 10 MG/2 ML SDV IV ONE (10:14)
--- NOTE | 2018-09-12 10:15 | ER Document Report ---
ED Headache - General Chief Complaint: Headache Stated Complaint: HEADACHE Time Seen by Provider: 09/12/18 09:55 Notes: 42-year-old female to the emergency department for evaluation of headache. Not the worst headache of her life. Did not come on suddenly. Does not remember when it started. Patient had a dental extraction done on Saturday. Has not felt like eating or drinking much. Feels thirsty. Headache around the front. Thought maybe she was getting sick so took some cold and flu medication but it only made her headache worse. Denies any fever, chills, sweats at this time. Denies any neck stiffness, abnormal rash, vomiting. No blurred vision. Not on blood thinners. No history of head trauma. No history of intracranial surgeries. Not worse when bending over. Did not wake her from sleep. TRAVEL OUTSIDE OF THE [place] IN LAST 30 DAYS: No - HPI Patient complains to provider of: Headache, Facial pain Onset: Yesterday Onset was: Cannot pinpoint, Gradual Timing: Still present Quality of pain: Achy, Dull - Related Data Allergies/Adverse Reactions: No Known Allergies Allergy (Verified 05/14/18 10:32) Past Medical History - General Information source: Patient, Relative - Social History Smoking Status: Current Every Day Smoker Cigarette use (# per day): Yes Frequency of alcohol use: None Drug Abuse: None Lives with: Parents Family History: Reviewed & Not Pertinent Patient has suicidal ideation: No Patient has homicidal ideation: No - Past Medical History Cardiac Medical History: Denies: Hx Coronary Artery Disease, Hx Heart Attack, Hx Hypertension Pulmonary Medical History: Denies: Hx Asthma, Hx Bronchitis, Hx COPD, Hx Pneumonia Neurological Medical History: Denies: Hx Cerebrovascular Accident, Hx Seizures Renal/ Medical History: Denies: Hx Peritoneal Dialysis Musculoskeletal Medical History: Denies Hx Arthritis Psychiatric Medical History: Reports: Hx Depression Past Surgical History: Reports: Hx Cholecystectomy - Immunizations Hx Diphtheria, Pertussis, Tetanus Vaccination: Yes Review of Systems - Review of Systems Notes: Constitutional: denies: Chills, Diaphoresis, Fever, Malaise, Weakness EENT: denies: Eye discharge, Blurred vision, Tearing, Double vision, Nose congestion, Nose discharge, Throat swelling, Mouth pain Cardiovascular: denies: Palpitations, Heart racing, Orthopnea, Dyspnea, Chest pain Respiratory: denies: Cough, Hurts to breathe, Wheezing, Shortness of breath Gastrointestinal: denies: Abdominal pain, Diarrhea, Nausea, Vomiting, Black stools, bright red blood in stool Genitourinary: denies: Burning, Dysuria, Discharge, Frequency, Flank pain, Hematuria Musculoskeletal: denies: Joint pain, Joint swelling, Muscle pain, Muscle stiffness, back pain Hematologic/Lymphatic: denies: Anemia, Easy bleeding, Easy bruising, Blood clots Neurological/Psychological: denies: Confusion, Dementia, Depression, Loss of consciousness. Does complain of headache. Skin: No lesions, no masses, no skin breakdown, no abscesses Physical Exam - Vital signs Vitals: Temp Pulse Resp BP Pulse Ox 98.3 F 90 18 119/55 L 98 09/12/18 09:56 09/12/18 09:56 09/12/18 09:56 09/12/18 09:56 09/12/18 09:56 Interpretation: Normal - General General appearance: Appears well, Alert - HEENT Head: Normocephalic, Atraumatic Eyes: Normal Pupils: PERRL - Respiratory Respiratory status: No respiratory distress Chest status: Nontender Breath sounds: Normal Chest palpation: Normal - Cardiovascular Rhythm: Regular Heart sounds: Normal auscultation Murmur: No - Abdominal Inspection: Normal Distension: No distension Bowel sounds: Normal Tenderness: Nontender Organomegaly: No organomegaly - Back Back: Normal, Nontender - Extremities General upper extremity: Normal inspection, Nontender, Normal color, Normal ROM , Normal temperature General lower extremity: Normal inspection, Nontender, Normal color, Normal ROM , Normal temperature, Normal weight bearing. No: Hood's sign - Neurological Neuro grossly intact: Yes Cognition: Normal Orientation: AAOx4 Deep Coma Scale Eye Opening: Spontaneous [place] Coma Scale Verbal: Oriented Deep Coma Scale Motor: Obeys Commands [place] Coma Scale Total: 15 Speech: Normal Motor strength normal: LUE, RUE, LLE, RLE Sensory: Normal - Psychological Associated symptoms: Normal affect, Normal mood - Skin Skin Temperature: Warm Skin Moisture: Dry Skin Color: Normal Course - Re-evaluation Re-evalutation: 09/12/18 10:24 At this time this is a relatively mild headache. Not concerning for any type of meningitis, encephalitis, subarachnoid hemorrhage. Will treat for headache at this time. We will get a urinalysis and flu swab as well. Will reassess. 09/12/18 12:13 Patient feeling much better at this time. Headache mostly resolved. Gave strict instructions to return if symptoms are getting worse. Will DC at this time. - Vital Signs Vital signs: Temp Pulse Resp BP Pulse Ox 98.3 F 90 18 119/55 L 98 09/12/18 09:56 09/12/18 09:56 09/12/18 09:56 09/12/18 09:56 09/12/18 09:56 Discharge - Discharge Clinical Impression: Migraine Qualifiers: Migraine type: unspecified Status migrainosus presence: without status migrainosus Intractability: not intractable Qualified Code(s): G43.909 - Migraine, unspecified, not intractable, without status migrainosus Condition: Good Disposition: HOME, SELF-CARE Instructions: Toradol Injection ([facility]), Headache ([facility]) Additional Instructions: If symptoms are getting worse please return. Referrals: MAGALIE HACKETT, [Primary Care Provider] - Follow up as needed
[2018-09-12 11:14] LABS: A TYPE INFLUENZA AG NEGATIVE (NEGATIVE); B INFLUENZA AG NEGATIVE (NEGATIVE)
[2018-09-12 11:25] LABS: APPEARANCE,URINE SLIGHTLY-CLOUDY; BILIRUBIN,URINE NEGATIVE (NEGATIVE); COLOR,URINE YELLOW; GLUCOSE, URINE NEGATIVE (NEGATIVE); KETONES,URINE NEGATIVE (NEGATIVE); LEUKOCYTE ESTERASE,URINE NEGATIVE (NEGATIVE); NITRITE,URINE NEGATIVE (NEGATIVE); PROTEIN,URINE NEGATIVE (NEGATIVE); UROBILINOGEN,URINE NEGATIVE mg/dL (<2.0)
[2018-09-12 12:21] VITALS: BP 108/58
== END 2018-09-12 12:18 | disposition home or self-care (01) ==
LOC: ER 09:43
DX: G43.909 Migraine, unspecified, not intractable, without status migrainosus (principal); F17.210 Nicotine dependence, cigarettes, uncomplicated; Z98.890 Other specified postprocedural states
CPT/HCPCS: 99284; 96361; 96374; 96375; 87086; 81025; 87088; 81001; 87186; 87804; J1200; J1885; J2765; J7030

== ENCOUNTER 2019-05-20 19:44 | Emergency (ER) | payer MEDICAID ==
--- NOTE | 2019-05-20 20:14 | ER Document Report ---
ED Medical Screen (RME) - General Chief Complaint: Back Pain Stated Complaint: BACK PAIN Time Seen by Provider: 05/20/19 20:00 Primary Care Provider: MAGALIE HACKETT DO [Primary Care Provider] - Follow up as needed TRAVEL OUTSIDE OF THE U[place] IN LAST 30 DAYS: No - HPI Notes: 05/20/19 20:12 Patient is a 43 yr old female that presents to the emergency department for evaluation of an IUD that migrated to her epigastric area approximately 2 months ago in [place], was supposed to have surgery but returned back to [place]. Patient states that she feels her IUD has migrated "near my heart", reports she has back pain in the thoracic area, rib pain and pain around her heart. Patient reports nausea and vomiting, has been progressively worse. Patient does not have a primary care provider, denies any fevers or chills. Patient does not have an established provider here in [place] ROS: Other than noted above, the 12 point review of systems was reviewed with the p atient and were negative, all pertinent findings are included in the HPI. PHYSICAL EXAMINATION: Vital signs reviewed. GENERAL: Well-appearing, well-nourished and in no acute distress. HEAD: Atraumatic, normocephalic. NECK: Normal range of motion CV: Heart regular rate and rhythm LUNGS: No respiratory distress. ABD: epigastric abd pain Musculoskeletal: Normal range of motion NEUROLOGICAL: Normal speech PSYCH: Normal mood, normal affect. MDM: Patient seen and examined for rapid initial assessment. Vital signs reviewed. A comprehensive ED assessment and evaluation of the patient, analysis of test results and completion of the medical decision making process will be conducted by additional ED providers. *Note is created using voice recognition software and may contain spelling, syntax or grammatical errors. - Related Data Allergies/Adverse Reactions: No Known Allergies Allergy (Verified 05/14/18 10:32) Past Medical History - Social History Chew tobacco use (# tins/day): No Frequency of alcohol use: None Drug Abuse: None - Past Medical History Cardiac Medical History: Denies: Hx Coronary Artery Disease, Hx Heart Attack, Hx Hypertension Pulmonary Medical History: Denies: Hx Asthma, Hx Bronchitis, Hx COPD, Hx Pneumonia Neurological Medical History: Denies: Hx Cerebrovascular Accident, Hx Seizures Renal/ Medical History: Denies: Hx Peritoneal Dialysis Musculoskeltal Medical History: Denies Hx Arthritis Psychiatric Medical History: Reports: Hx Depression Past Surgical History: Reports: Hx Cholecystectomy - Immunizations Hx Diphtheria, Pertussis, Tetanus Vaccination: Yes History of Influenza Vaccine for 07/2017 - 12/2017 Season: Yes Influenza Administration Date for 07/2017 - 12/2017 Season: 08/15/17 Physical Exam - Vital signs Vitals: Temp Pulse Resp BP Pulse Ox 97.8 F 93 20 115/53 L 100 05/20/19 19:52 05/20/19 19:52 05/20/19 19:52 05/20/19 19:52 05/20/19 19:52 Course - Vital Signs Vital signs: Temp Pulse Resp BP Pulse Ox 97.8 F 93 20 115/53 L 100 05/20/19 19:52 05/20/19 19:52 05/20/19 19:52 05/20/19 19:52 05/20/19 19:52 Doctor's Discharge - Discharge Referrals: MAGALIE HACKETT DO [Primary Care Provider] - Follow up as needed
--- NOTE | 2019-05-20 20:51 | RADIOLOGY REPORT (SQ) ---
XR CHEST 1 VIEW EXAM DATE: 05/20/2019 8:11 PM CDT HISTORY: epigastric pain, vomiting, chest pain. COMPARISON: None. FINDINGS: The heart size is within normal limits. No consolidation, pleural effusion, or pneumothorax is seen. The bony thorax is intact. IMPRESSION: No evidence of acute cardiopulmonary disease.
[2019-05-20 21:16] LABS: ALANINE AMINOTRANSFERASE 13 U/L (9-52); ALBUMIN 3.8 g/dL (3.5-5.0); ALKALINE PHOSPHATASE 87 U/L (38-126); ANION GAP 9 (5-19); ASPARTATE AMINO TRANSFERASE 13 U/L (14-36); BILIRUBIN,DIRECT 0.3 mg/dL (0.0-0.4); BILIRUBIN,TOTAL 0.6 mg/dL (0.2-1.3); BLOOD UREA NITROGEN 9 mg/dL (7-20); CALCIUM 9.3 mg/dL (8.4-10.2); CARBON DIOXIDE 24 mmol/L (22-30); CHLORIDE 107 mmol/L (98-107); CREATINE KINASE 37 U/L (30-135); GLUCOSE 94 mg/dL (75-110); POTASSIUM 3.2 mmol/L (3.6-5.0); TOTAL PROTEIN 6.2 g/dL (6.3-8.2)
[2019-05-20 21:30] LABS: CREATINE KINASE MB < 0.22 ng/mL (<4.55); TROPONIN I < 0.012 ng/mL
--- NOTE | 2019-05-20 22:35 | ER Document Report ---
ED General - General Chief Complaint: Back Pain Stated Complaint: BACK PAIN Time Seen by Provider: 05/20/19 20:00 Primary Care Provider: CLAUDIA LEA MD [ACTIVE STAFF] - Follow up in 3-5 days Notes: Patient is a pleasant 43-year-old female presents with complaint of right-sided abdominal pain with some nausea and vomiting. No fevers. Patient's had a hysterectomy last year performed by Dr. Lea here. At that time they did not see an IUD in her uterus. She is feeling okay and therefore she was discharged home. 2 months ago started having some intermittent abdominal pain therefore she was seen at a hospital in [facility]. An x-ray which showed that she still had IUD retained in her abdomen. At that time they want to take her up with the patient and her family said that they were having some family difficulties and therefore decided to hold off. They have since moved back here she is having some abdominal pain with some nausea and therefore they came to ER. No dysuria. Urinary frequency. No other complaints at this time. No fevers. Has had previous cholecystectomy. TRAVEL OUTSIDE OF THE [place] IN LAST 30 DAYS: No - Related Data Allergies/Adverse Reactions: No Known Allergies Allergy (Verified 05/14/18 10:32) Past Medical History - Social History Smoking Status: Never Smoker Chew tobacco use (# tins/day): No Frequency of alcohol use: None Drug Abuse: None Family History: Reviewed & Not Pertinent Patient has suicidal ideation: No Patient has homicidal ideation: No - Past Medical History Cardiac Medical History: Denies: Hx Coronary Artery Disease, Hx Heart Attack, Hx Hypertension Pulmonary Medical History: Denies: Hx Asthma, Hx Bronchitis, Hx COPD, Hx Pneumonia Neurological Medical History: Denies: Hx Cerebrovascular Accident, Hx Seizures Renal/ Medical History: Denies: Hx Peritoneal Dialysis Musculoskeletal Medical History: Denies Hx Arthritis Psychiatric Medical History: Reports: Hx Depression Past Surgical History: Reports: Hx Cholecystectomy - Immunizations Hx Diphtheria, Pertussis, Tetanus Vaccination: Yes Review of Systems - Review of Systems Notes: My Normal Review Basic REVIEW OF SYSTEMS: CONSTITUTIONAL : Denies fever, chills, or sweats. Denies recent illness. CARDIOVASCULAR: Denies chest pain. RESPIRATORY: Denies cough, cold, or chest congestion. Denies shortness of breath, difficulty breathing, or wheezing. GASTROINTESTINAL: Right-sided abdominal pain. Nausea and vomiting GENITOURINARY: Denies difficulty urinating, painful urination, burning, frequency, or blood in urine. FEMALE GENITOURINARY: Previous hysterectomy MUSCULOSKELETAL: Denies neck or back pain or joint pain or swelling. SKIN: Denies rash or skin lesions. NEUROLOGICAL: Denies altered mental status or loss of consciousness. Denies headache. Denies weakness or paralysis or loss of use of either side. Denies problems with gait or speech. Denies sensory or motor loss. ALL OTHER SYSTEMS REVIEWED AND NEGATIVE. Physical Exam - Vital signs Vitals: Temp Pulse Resp BP Pulse Ox 97.8 F 93 20 115/53 L 100 05/20/19 19:52 05/20/19 19:52 05/20/19 19:52 05/20/19 19:52 05/20/19 19:52 - Notes Notes: General Appearance: Well nourished, alert, cooperative, no acute distress, mild obvious discomfort. Vitals: reviewed, See vital signs table. Head: no swelling or tenderness to the head Eyes: PERRL, EOMI, Conjuctiva clear Mouth: No decreasd moisture Lungs: No wheezing, No rales, No rhonci, No accessory muscle use, good air exchange bilaterally. Heart: Normal rate, Regular rythm, No murmur, no rub Abdomen: Normal BS, soft, No rigidity, and right sided abdominal tenderness to palpation. Abdominal tenderness, No guarding, no rebound, no abdominal masses, no organomegaly Extremities: good pulses in all extremities, no swelling or tenderness in the extremities, no edema. Skin: warm, dry, appropriate color, no rash Neuro: speech clear, oriented x 3, normal affect, responds appropriately to questions. Course - Re-evaluation Re-evalutation: 05/21/19 00:54 Patient's x-ray did confirm that she still has a IUD in her pelvic region. I did call and speak with her transcriber on-call, Dr. Kendall, informed her of the retained IUD. It appears that her hysterectomy is actually performed April [address] Lea here. She said she would make the office aware so they can contact her and give her a close follow-up appointment this coming week to arrange to have it removed. She said patient will likely need a CT scan before surgery being performed. I will go ahead and just have that obtained here so that we do not delay the patient's care and getting the IUD removed outpatient only. She does have a UTI. I suspect this may be also why she has pain on the right side. CT scan will also help make sure that there is no evidence of associated kidney stone with this. I explained the plan to the patient and her mother and they are agreeable with plan. 05/21/19 00:54 05/21/19 05:[address] scan is negative. Patient is well-appearing. I feel patient safe to be discharged home. Nausea is much improved with the Zofran. Will prescribe Zofran to take at home. Encouraged to follow-up with the transcriber office to arrange to have the IUD removed. Patient appears to have some evidence of UTI and therefore I have placed on Keflex. Encouraged him to return to ER immediat riddhi if she has recurrent vomiting, worsening pain, fevers, or if she feels like she is worsening in any way. Patient and mother agree with plan and patient will be discharged home. Dictation of this chart was performed using voice recognition software; therefore, there may be some unintended grammatical errors. - Vital Signs Vital signs: Temp Pulse Resp BP Pulse Ox 97.8 F 75 18 101/51 L 100 05/21/19 02:57 05/21/19 02:57 05/21/19 02:57 05/21/19 02:57 05/21/19 02:57 - Laboratory Result Diagrams: 05/20/19 20:35 05/20/19 20:35 Laboratory results interpreted by me: 05/20/19 05/20/19 20:35 23:40 Potassium 3.2 L AST 13 L Total Protein 6.2 L Ur Leukocyte Esterase TRACE H - EKG Interpretation by Me Additional EKG results interpreted by me: 05/20/19 22:34 EKG is reviewed and interpreted by me. EKG shows sinus rhythm with a rate of [address] segment elevation or depression. No ischemic T wave inversions. MO interval, QRS duration, QT intervals are within normal range. Old EKG for comparison from May 14, 2018. Discharge - Discharge Clinical Impression: Abdominal pain, UTI (urinary tract infection), retained IUD Condition: Good Disposition: HOME, SELF-CARE Additional Instructions: You still have the IUD in your lower abdomen. This will need to be removed surgically. I did speak with her transcriber on-call, Dr. Kendall, who will [facility] and they should be calling you tomorrow to set up an appointment. Please call them if you do not hear from them by Saturday. Please take the Zofran for nausea. You can take 1 tablet dissolved in mouth every 4 hours as needed for nausea. Take Tylenol 500 mg every 4 hours for pain. Please return to the ER if you have intractable pain, fevers, intractable vomiting, or feel unwell. Your urinalysis does show some signs of infection. I will place you on an antibiotic. Please take the antibiotic as prescribed. Prescriptions: Ondansetron [Zofran Odt 4 mg Tablet] 1 tab PO Q4HP PRN #15 tab.rapdis PRN Reason: RX: Cephalexin Monohydrate [Keflex 500 mg Capsule] 500 mg PO BID #14 capsule Referrals: CLAUDIA LEA MD [ACTIVE STAFF] - Follow up in 3-5 days
[2019-05-20] MEDS ORDERED: NORMAL SALINE 1000 ML 1,000 ML IV ONE (23:11)
[2019-05-20] MEDS ORDERED: ONDANSETRON HCL INJ/PF 4 MG/2 ML SDV IV ONE (23:12)
[2019-05-20 23:23] LABS: ABSOLUTE BASOPHILS # (AUTO) 0.1 10^3/uL (0.0-0.2); ABSOLUTE EOSINOPHILS # (AUTO) 0.3 10^3/uL (0.0-0.6); ABSOLUTE LYMPHOCYTES (AUTO) 3.4 10^3/uL (0.5-4.7); ABSOLUTE MONOCYTES (AUTO) 0.6 10^3/uL (0.1-1.4); ABSOLUTE NEUT (AUTO) 6.1 10^3/uL (1.7-8.2); EOSINOPHILS % (AUTO) 2.6 % (0-6); HEMATOCRIT 38.3 % (36.0-47.0); HEMOGLOBIN 12.9 g/dL (12.0-15.5); LYMPHOCYTES % (AUTO) 32.1 % (13-45); MEAN CORPUSCULAR HEMOGLOBIN 32.2 pg (27.0-33.4); MEAN CORPUSCULAR HGB CONC 33.8 g/dL (32.0-36.0); MEAN CORPUSCULAR VOLUME 95 fl (80-97); PLATELET COUNT 272 10^3/uL (150-450); RED BLOOD COUNT 4.02 10^6/uL (3.72-5.28); SEGMENTED NEUTROPHILS % (AUTO) 58.3 % (42-78); TOTAL CELLS COUNTED % (AUTO) 100 %; WHITE BLOOD COUNT 10.5 10^3/uL (4.0-10.5)
--- NOTE | 2019-05-20 23:45 | EKG REPORT ---
SEVERITY:- NORMAL ECG - SINUS RHYTHM : Confirmed by: Alex Kurtz 20-May-2019 23:45:14
--- NOTE | 2019-05-20 23:56 | RADIOLOGY REPORT (SQ) ---
EXAM DESCRIPTION: XR ABDOMEN 2 VIEWS CLINICAL HISTORY: 43 years Female, IUD migration? COMPARISON: AP pelvis on 05/02/2018. FINDINGS: Supine AP and lateral abdomen: IUD is noted, unchanged in position since 05/02/2018. There is a slight rightward tilt of the fundus as on prior exam. Bowel gas pattern is normal, with no air-fluid levels or small bowel distention. No suspicious calcifications. Upper abdominal surgical clips are noted. Left hip replacement is again noted, without evidence for loosening or dislocation. IMPRESSION: 1. No change in the position of the IUD since 05/02/2018. 2. No acute findings
[2019-05-21 00:10] LABS: APPEARANCE,URINE SLIGHTLY-CLOUDY; BILIRUBIN,URINE NEGATIVE (NEGATIVE); COLOR,URINE YELLOW; GLUCOSE, URINE NEGATIVE (NEGATIVE); KETONES,URINE NEGATIVE (NEGATIVE); LEUKOCYTE ESTERASE,URINE TRACE (NEGATIVE); NITRITE,URINE NEGATIVE (NEGATIVE); PROTEIN,URINE NEGATIVE (NEGATIVE); URINE SPECIFIC GRAVITY 1.013; UROBILINOGEN,URINE NEGATIVE mg/dL (<2.0)
[2019-05-21] MEDS ORDERED: CEFTRIAXONE 1 GM/D5W RTU 1 GM/50 ML RTUPB IV ONE (00:52)
[2019-05-21] MEDS ORDERED: ONDANSETRON HCL INJ/PF 4 MG/2 ML SDV IV ONE (00:54)
[2019-05-21] MEDS ORDERED: MORPHINE SULFATE 10 MG/ML INJ IV ONE (00:54)
--- NOTE | 2019-05-21 02:09 | RADIOLOGY REPORT (SQ) ---
EXAM DESCRIPTION: RadLex: CT ABDOMEN PELVIS WITHOUT IV CONTRAST CLINICAL HISTORY: 43 years Female; abdominal pain, IUD TECHNIQUE: CT of the abdomen and pelvis without contrast. All CT scans at this facility use dose modulation, iterative reconstruction, and/or weight based dosing when appropriate to reduce radiation dose to as low as reasonably achievable. COMPARISON: None. FINDINGS: Abdomen: Liver:No focal lesions. No intrahepatic ductal distention. Gallbladder: Surgically absent Pancreas:Within normal limits Spleen:Within normal limits Right kidney:No hydronephrosis. No renal or ureteral calculi. Left kidney:No hydronephrosis. No renal or ureteral calculi. Adrenal glands:Within normal limits Vascular structures: Minimal aortic calcification. No aneurysm. Pelvis: Small bowel:No significant distention. Appendix: Not identified. Likely surgically absent. Colon:No distention or acute pericolonic edema. No free intraperitoneal fluid or air. Bones: No acute bone findings. Bladder: Not well visualized due to artifact. IUD is noted in the left posterior pelvis, not located in the uterus. It is medial and posterior to the left ovary, anterior to the sacrum, and superior to a segment of sigmoid colon. There is no adjacent edema. This position has not changed since 05/02/2018. No adnexal enlargement. No adnexal edema. Uterus is not well identified (there is considerable artifact from the left hip arthroplasty Note that evaluation of the bowel and solid organs is somewhat limited due to lack of intravenous and oral contrast. IMPRESSION: 1. No acute findings. 2. The IUD is in the left posterior pelvic soft tissues, likely in the peritoneal cavity. This position has not changed since 05/02/2018. There is no adjacent edema to suggest an acute process. 3. Previous cholecystectomy and left hip arthroplasty
[2019-05-21] MEDS ORDERED: ONDANSETRON ODT 4 MG TAB (6 TAB/ER DISP) PO PRN (02:35)
[2019-05-21 03:02] VITALS: BP 101/51
== END 2019-05-21 02:57 | disposition home or self-care (01) ==
LOC: ER 19:44
DX: N39.0 Urinary tract infection, site not specified (principal); T83.32XA Displacement of intrauterine contraceptive device, initial encounter; Y76.8 Miscellaneous obstetric and gynecological devices associated with adverse incidents, not elsewhere classified; R10.9 Unspecified abdominal pain; R11.2 Nausea with vomiting, unspecified; Z90.710 Acquired absence of both cervix and uterus
CPT/HCPCS: 93005; 96376; 99284; 96361; 96375; 96365; 36415; 82553; 82550; 83690; 85025; 80053; 81001; 84484; 74019; 71045; 74176; 93010; J2270; J2405 ×2; J7030; J0696

== ENCOUNTER 2019-06-18 08:40 | Day surgery (SDC) | payer MEDICAID ==
[2019-06-16 09:31] LABS: HEMATOCRIT 39.4 % (36.0-47.0); HEMOGLOBIN 13.4 g/dL (12.0-15.5); MEAN CORPUSCULAR HEMOGLOBIN 32.1 pg (27.0-33.4); MEAN CORPUSCULAR HGB CONC 34.1 g/dL (32.0-36.0); MEAN CORPUSCULAR VOLUME 94 fl (80-97); PLATELET COUNT 278 10^3/uL (150-450); RED BLOOD COUNT 4.19 10^6/uL (3.72-5.28); RED CELL DISTRIBUTION WIDTH 12.9 % (11.5-14.0); WHITE BLOOD COUNT 8.3 10^3/uL (4.0-10.5)
[~2019-06-18 08:40] MED LIST changes: -CEFAZOLIN 1 GM/D5W RTU 1 GM/50 ML RTUPB IV PRN; +FENTANYL CITRATE INJ/PF 100 MCG/2 ML AMPUL ONE; -LACTATED RINGERS 1000 ML IV PRN; +LIDOCAINE 2% INJ (20 MG/ML) 20 ML MDV ONE; +MIDAZOLAM 2 MG/2 ML INJ ONE; +PROMETHAZINE HCL INJ 25 MG/1 ML VIAL ONE; +PROPOFOL INJ 200 MG/20 ML VIAL IV ONE
[2019-06-18] MEDS ORDERED: PROMETHAZINE HCL INJ 25 MG/1 ML VIAL IV PRN ×2 (09:15)
[2019-06-18] MEDS ORDERED: MORPHINE SULFATE 10 MG/ML INJ IV PRN (09:15)
[2019-06-18] MEDS ORDERED: FENTANYL CITRATE INJ/PF 100 MCG/2 ML AMPUL IV PRN ×3 (09:15)
[2019-06-18] MEDS ORDERED: DIPHENHYDRAMINE HCL 50 MG/ML VIAL IV PRN (09:15)
[2019-06-18] MEDS ORDERED: OXYCODONE-ACETAMINOPHEN 5-325 MG TABLET PO PRN ×3 (09:15→10:57)
[2019-06-18] MEDS ORDERED: ONDANSETRON HCL INJ/PF 4 MG/2 ML SDV IV PRN (09:15)
[2019-06-18] MEDS ORDERED: MEPERIDINE HCL/PF INJ 25 MG/1 ML DISP.SYRIN IV PRN (09:15)
[2019-06-18] MEDS ORDERED: BUPIVACAINE HCL 0.25 % INJ/PF (2.5 MG/1 ML) 30 ML VIAL ONE (09:17)
--- NOTE | 2019-06-18 11:10 | OPERATIVE REPORT E ---
Operative Report NAME: LES MITTAL : 1975 AGE: 43Y DATE OF SURGERY: 06/18/2019 ROOM: PREOPERATIVE DIAGNOSIS: Foreign body in the abdomen presumed to be IUD. POSTOPERATIVE DIAGNOSIS: Foreign body in the abdomen presumed to be IUD. OPERATION: Diagnostic laparoscopy and removal of IUD. SURGEON: Darinel TYLER M.D. ANESTHESIA: General. ESTIMATED BLOOD LOSS: Less than 5 mL. TISSUE REMOVED: None. FOREIGN BODY REMOVED: IUD. PROCEDURE: The patient was placed in a dorsal lithotomy position, prepped and draped in the usual sterile fashion. The bladder was drained with a catheter. A sponge stick was placed in the vagina. A subumbilical incision was made and introduction of the laparoscope. Visualization of the pelvis revealed multiple adhesions from the omentum to the anterior abdominal wall obscuring the left adnexa. Previous fluoro had been done with marking of the skin of the approximation where the IUD was. Adhesions were taken down using a harmonic scalpel, and the IUD could still not be identified. A live fluoro was then done and the IUD was spotted in the left lower quadrant. It was grasped and it was loosely adhered to the omentum, and it was removed without difficulty. A survey of the abdomen revealed no other abnormalities. The scopes were removed and the abdomen deflated. Trocar sleeves were removed. The incision was closed with 4-0 Vicryl and Dermabond on top of the sutures. She tolerated it well and was taken to recovery in good condition. DICTATING PHYSICIAN: Darinel TYLER M.D. [id number] PHY#: [id number] ID: [id number] JOB#: [id number] ACCT: [id number] cc:Darinel TYLER M.D. >
[2019-06-18] MEDS ORDERED: OXYCODONE-ACETAMINOPHEN 5-325 MG TABLET ONE (11:28)
[2019-06-18 12:36] VITALS: BP 94/53
[2019-06-18] MEDS ORDERED: ROCURONIUM BROMIDE INJ 50 MG/5 ML VIAL IV ONE (13:50)
[2019-06-18] MEDS ORDERED: SUCCINYLCHOLINE CHLORIDE INJ 200 MG/10 ML VIAL ONE (13:50)
[2019-06-18] MEDS ORDERED: KETOROLAC TROMETHAMINE 60 MG/2 ML SDV ONE (13:50)
[2019-06-18] MEDS ORDERED: ONDANSETRON HCL INJ/PF 4 MG/2 ML SDV ONE (13:50)
[2019-06-18] MEDS ORDERED: DEXAMETHASONE SOD PHOSPHATE INJ 4 MG/1 ML VIAL ONE (13:50)
[2019-06-18] MEDS ORDERED: IBUPROFEN 800 MG TABLET PO SCH (14:00)
[2019-06-18] MEDS ORDERED: ONDANSETRON HCL 8 MG TABLET PO PRN (14:00)
== END 2019-06-18 12:20 | disposition home or self-care (01) ==
LOC: OROUT 08:40
PROVIDERS: ATTEND Obstetrics & Gynecology Gynecology
DX: T83.32XA Displacement of intrauterine contraceptive device, initial encounter (principal); Y76.3 Surgical instruments, materials and obstetric and gynecological devices (including sutures) associated with adverse incidents; K66.0 Peritoneal adhesions (postprocedural) (postinfection); N93.9 Abnormal uterine and vaginal bleeding, unspecified; G47.30 Sleep apnea, unspecified
CPT/HCPCS: 36415 ×2; 87086; 84703; 85027; 00840; 58301; 49320; J2250; J3490 ×2; J1100; J1885; J3010; J2550; J0330; J2405; S0020; J2704; 840